=== PATIENT | female | born 1975 | race Caucasian/White ===

== ENCOUNTER 2019-09-11 16:44 | Emergency (ER) | payer SELFPAY ==
[2019-09-11 16:50] VITALS: BP 139/88; PULSE 111; RESP 16; TEMP 36.7; O2SAT 99; BMI 21.8
--- NOTE | 2019-09-11 16:58 | W.ED.SKABFB ---
HPI - Skin/Abscess/Foreign Bdy General: Chief complaint: Skin/Abscess/Foreign Body Stated complaint: abscess Time Seen by Provider: 09/11/19 16:57 Source: patient Mode of arrival: ambulatory Limitations: no limitations History of Present Illness: HPI narrative: Patient is a 44-year-old female here with a complaint of an abscess to her right buttock over the past 4 to 5 days. Patient reports a history of frequent abscesses. She reports a history of MRSA. Tetanus up to date: yes Location: buttocks Relieving factors: none Exacerbating factors: other (sitting on buttocks ) Associated symptoms: Deny chills, fever(s), nausea or vomiting Review of Systems Const: Denies: fever, chills or body aches GI: Denies: nausea or vomiting Skin/Breast: Reports: other (R buttock abscess ) [facility] ED PFSH: Social History Smoking and tobacco status: current every day smoker Physical Exam Const: COMMON NORMALS: no apparent distress, average body habitus, oriented x3, no limitations and alert GENERAL APPEARANCE: appears older than stated age Resp: COMMON NORMALS: normal respiratory effort Cardio: COMMON NORMALS: regular rate and regular rhythm RATE: regular rate RHYTHM: regular rhythm Neuro: COMMON NORMALS: oriented x3 SENSORIUM/ORIENTATION: Yes alert Skin: OTHER: pt has an area of about 2 inches of erythema to her R buttock; center is indurated and mildly fluctuant and drains purulent material with gentle expression Procedures Abscess I/D Site: other (buttock) Side (if applicable): right Local Anesthetic: lidocaine 1% and with epi Amount of anesthesia used (mL): 2.0 Technique: incised with #11 blade Amount of fluid expressed (mL): 1.0 Irrigation: Yes Packing used?: plain Complications: other (none; cultures obtained ) Course Vital Signs: Vital signs: Vital Signs Temperature 98.4 F 09/11/19 18:02 Pulse Rate 64 09/11/19 18:02 Respiratory Rate 16 09/11/19 18:02 Blood Pressure 137/68 09/11/19 18:02 Pulse Oximetry 96 09/11/19 18:02 Discharge Plan Discharge Patient Disposition: Home, Self-Care Clinical Impression: Abscess of buttock, right Condition: Stable Prescriptions: New Bactrim DS 800-160 mg tablet 1 tab PO BID 7 Days Qty: 14 RF: 0 Discharge Orders: Discharge Order (Routine); Ordered 09/11/19 Ordered By: Ana Lilia Saleem Patient Instructions: Abscess Incision and Drainage (ED), Abscess (ED) Activity Restrictions/Additional Instructions: You may remove packing in 3 days. Warm compresses will help facilitate drainage. Begin your antibiotics immediately. Return to ED in 48 hours for worsening pain, redness, swelling, drainage. Discharge Date/Time: 09/11/19 18:04 Coding Level of Care Code ED Director Of Agronomy for Thor Johnson
[2019-09-11] MEDS: sulfamethoxazole-trimeth DS 160-800 mg Tablet 1 TAB PO (18:00)
[2019-09-11 18:02] VITALS: BP 137/68; PULSE 64; RESP 16; TEMP 36.9; O2SAT 96
== END 2019-09-11 18:04 | disposition home or self-care (01) ==
PROVIDERS: Emergency Provider Physician Assistant
DX: L02.31 Cutaneous abscess of buttock (principal); F17.200 Nicotine dependence, unspecified, uncomplicated
CPT/HCPCS: 10060; 12345; 87070; 87077; 87186; 87205; 99282; 99283; J2001

== ENCOUNTER 2020-03-09 19:12 | Emergency (ER) | payer SELFPAY ==
[2020-03-09 19:37] VITALS: BP 117/70; PULSE 93; RESP 16; TEMP 36.8; O2SAT 98; BMI 21.8
--- NOTE | 2020-03-09 19:52 | ED_ITS ---
HPI - General Adult General: Chief complaint: General Medical Stated complaint: possible uti/ovarie pain Time Seen by Provider: 03/09/20 19:46 History of Present Illness: HPI narrative: 45-year-old female patient presents to the emergency department with complaints of possible urinary tract infection. She reports last night, experienced an episode of urinary pain and burning. She reports lower abdominal pain x3 months. Has not worsened, comes and goes, w orse with menstrual cycle which is every 2 weeks. She does not have a primary care provider. She denies vaginal bleeding or discharge. She is requesting to be tested for STD. Reports last menstrual period approximately 10 days ago. She denies abdominal/pelvic pain upon exam. Location: pelvis Radiation: other (Suprapubic) Associated symptoms: Reports no associated symptoms; Deny chest pain, diaphoresis, dyspnea, headache(s), nausea, rash, palpitations or vomiting Treatments prior to arrival: none Review of Systems General: Reports: 10 or more systems reviewed and unremarkable except in HPI and below Const: Denies: fever(s), chills or diaphoresis Eyes: Denies: blurry vision or eye redness ENMT: Denies: throat pain, dental pain or disequilibrium Card: Denies: chest pain, palpitations or irregular heart rhythm Resp: Denies: dyspnea, productive cough, non-productive cough or wheezing GI: Denies: abdominal pain, nausea or vomiting : Reports: dysuria (Burning) and change in menstrual flow (More frequent past 3 months); Denies: difficulty voiding, hematuria, genital lesions, vaginal dryness, vaginal odor, vaginal bleeding, vaginal discharge or metrorrhagia Musc: Denies: back pain Skin/Breast: Denies: rash or pruritus Neuro: Denies: headache(s), weakness in extremities or behavioral changes Gt/Lymph: Denies: easy bruising PFS ED PFSH: Social History (Updated 03/09/20 @ 18:45 by Kae Lopez LPN) Smoking and tobacco status: current every day smoker Alcohol intake: current Female Reproductive History: Date of last menstrual period: 03/01/20 Physical Exam Const: COMMON NORMALS: no acute distress, patient oriented x3, healthy appearing and alert GENERAL APPEARANCE: cooperative, comfortable and well hydrated ORIENTATION/CONSCIOUSNESS: Yes awake, Yes oriented to person and Yes oriented to place HENMT: COMMON NORMALS: normocephalic, Normal external nose present and moist oral mucous membranes HEAD & SCALP: normocephalic NOSE: Normal external nose present Eye: COMMON NORMALS: Equal, round and reactive pupils present and EOMs intact bilaterally GENERAL EYE: appearance normal, both eyes and all related structures PUPIL: Yes Equal, round and reactive pupils present Neck/C-Spine: COMMON NORMALS: full ROM and no lymphadenopathy GENERAL: Yes normal visual inspection and Yes trachea midline CERVICAL SPINE: Yes cervical ROM normal Lymph: LYMPHATIC: no lymphadenopathy noted Chest: COMMONS NORMALS: normal inspection of the chest Resp: COMMON NORMALS: normal respiratory effort and clear to auscultation bilaterally AUSCULTATION: clear to auscultation bilaterally Cardio: COMMON NORMALS: regular rhythm, S1 normal heart sound present, S2 normal heart sound present and Peripheral pulses 2+ throughout RHYTHM: regular rhythm HEART SOUNDS: S1 normal heart sound present and S2 normal heart sound present PERIPHERAL PULSES: Peripheral pulses 2+ throughout GI: COMMON NORMALS: Normal to inspection, nondistended, normoactive bowel sounds present, Soft to palpation and non-tender INSPECTION: Yes normal to inspection AUSCULTATION: Yes normoactive bowel sounds PALPATION: Yes Soft to palpation : COMMON NORMALS: Yes no CVA tenderness BLADDER/KIDNEY EXAM: Yes no CVA tenderness Back/Pelvis: COMMON NORMALS: no CVA tenderness and thoracic and lumbar spine normal to inspection Extremity: COMMON NORMALS: normal to inspection and capillary refill normal Neuro: COMMON NORMALS: patient oriented x3 and no focal motor deficits SENSORIUM/ORIENTATION: Yes alert, Yes oriented to person and Yes oriented to place Psych: COMMON NORMALS: mental status grossly normal, Normal thought process present and cooperative ACTIVITY/MOTOR BEHAVIOR: Yes appropriate eye contact THOUGHT PROCESS: Normal thought process present Skin: COMMON NORMALS: no rashes or lesions noted and turgor normal GENERAL SKIN EXAM: no rashes or lesions noted and turgor normal Course ED course: 45-year-old female presents to the emergency department with 3- month history of lower pelvic pain, pain has not changed, she denies pain in the emergency room during her stay. She reports 1 day history of pain with urination, denies pain with urination upon exam. She is requesting pelvic ultrasound, discussion with patient that she will need to follow-up with primary care who then can order pelvic ultrasound she verbalized understanding. She is aware I have consulted social insurance specialist to assist with the process. Vital Signs: Vital signs: Vital Signs Temperature 98.2 F 03/09/20 19:37 Pulse Rate 71 03/09/20 21:03 Respiratory Rate 18 03/09/20 21:03 Blood Pressure 116/74 03/09/20 21:03 Pulse Oximetry 99 03/09/20 21:03 MDM - General Adult Lab Data: Labs: Lab Results 03/09/20 03/09/20 03/09/20 Range/Units 19:58 19:58 19:58 Urine Color Yellow (Yellow) Urine Appearance Clear (CLEAR) Urine pH 5 (5-7) Ur Specific Gravit y 1.030 (1.005-1.030) Urine Protein Neg (Negative) Urine Glucose (UA) Norm (Normal) Urine Ketones Negative (Negative) Urine Blood Neg (Negative) Urine Nitrate Negative (Negative) Urine Bilirubin Neg (Negative) Urine Urobilinogen Norm (Negative) mg/dL Ur Leukocyte Batsheva ase Negative (Negative) Urine HCG, Qual Negative (Negative) C.trachomatis RNA (TMA) Cancelled Chlamydia/GC Comme nt Cancelled N.gonorrhoeae RNA (TMA) Cancelled Discharge Plan Discharge Patient Disposition: Home Clinical Impression: Pelvic pain in female, Dysuria Condition: Stable Prescriptions: No Action No Known Home Medications RF: 0 Discharge Orders: Discharge Order (Routine); Ordered 03/09/20 Ordered By: Reshma Hoff Discharge Diet: Usual diet Discharge Activity: Resume usual activity Patient Instructions: Dysuria (ED), Pelvic Pain Activity Restrictions/Additional Instructions: information services consultant has been contacted to help assist with appointment for primary care provider he can then order pelvic ultrasound. test negative today, urine today did not reveal active infection. STD testing will be batch tomorrow, you will be contacted if positive results. Return to the emergency department if you develop heavy vaginal bleeding, nausea vomiting with lower pelvic pain or worsening symptoms. Discharge Date/Time: 03/09/20 21:05 Coding Level of Care Code ED Piercing Specialist for Thor Johnson Exam Comprehensive
[2020-03-09 20:17] LABS: Add Urine Microscopic? NO
[2020-03-09 20:21] LABS: Bilirubin Urine Neg (Negative); Blood Urine Neg (Negative); Glucose Urine UA Norm (Normal); Ketones Urine Negative (Negative); Leukocyte Esterase Urine Negative (Negative); Nitrate Urine Negative (Negative); Protein Urine Neg (Negative); Urine Appearance Clear (CLEAR); Urine Color Yellow (Yellow); Urobilinogen Urine Norm (Negative); pH Urine 5 (5-7)
[2020-03-09 21:03] VITALS: BP 116/74; PULSE 71; RESP 18; O2SAT 99
--- NOTE | 2020-03-10 10:09 | DCPLANNER ---
bindery manager had message to speak with patient about getting established with a primary care physician. bindery manager called phone number [phone], that is not the phone number to the patient. bindery manager is unable to speak with patient at this time, and unable to leave a voicemail for patient.
== END 2020-03-09 21:05 | disposition home or self-care (01) ==
PROVIDERS: Emergency Medicine; Emergency Provider Nurse Practitioner Family
DX: R10.2 Pelvic and perineal pain (principal); R30.0 Dysuria; F17.210 Nicotine dependence, cigarettes, uncomplicated
CPT/HCPCS: 12345; 81003; 81025; 87491; 87591; 99282

== ENCOUNTER 2020-08-26 00:28 | Emergency (ER) | payer SELFPAY ==
[2020-08-26 00:31] VITALS: BP 121/88; PULSE 94; RESP 18; TEMP 36.5; O2SAT 100
--- NOTE | 2020-08-26 00:39 | ED_ITS ---
HPI - Headache General: Chief Complaint: Headache Stated Complaint: HEAD AND NECK PRESSURE Time Seen by Provider: 08/26/20 00:35 Source: patient and EMS Mode of arrival: EMS Limitations: no limitations History of Present Illness: HPI Narrative: 45-year-old female who states she has had some headache and right-sided ear pain and fullness over the last month with it worsening tonight. She states seems to be stress related. States she does have a history of migraines and this feels similar to her migraine as well. States that she has pain behind her right ear. Denies any vomiting or diarrhea. Denies any improving factors. States her pain is currently 5 out of 10. MD elicited complaint: headache Associated symptoms: Deny chest pain, fever(s), nausea, rash or vomiting Review of Systems Const: Denies: fever(s), chills, body aches or change in appetite Eyes: Denies: blurry vision or eye discomfort ENMT: Reports: ear or mastoid pain Card: Denies: chest pain Resp: Denies: dyspnea GI: Denies: abdominal pain, nausea, vomiting or diarrhea : Denies: dysuria Musc: Denies: neck pain or back pain Skin/Breast: Denies: rash Neuro: Reports: headache(s) Psych: Denies: depression Gt/Lymph: Denies: easy bruising All/Imm: Denies: urticaria [facility] ED PFSH: Social History (Updated 03/09/20 @ 18:45 by Kae Lopez LPN) Smoking and tobacco status: current every day smoker Alcohol intake: current Female Reproductive History: Date of last menstrual period: 03/01/20 Physical Exam Const: COMMON NORMALS: no acute distress, patient oriented x3 and healthy appearing HENMT: COMMON NORMALS: normocephalic and atraumatic HEAD & SCALP: normocephalic and atraumatic OTHER: Erythema to right TM with some fluid behind eardrum as well. Eye: COMMON NORMALS: Equal, round and reactive pupils present and EOMs intact bilaterally PUPIL: Yes Equal, round and reactive pupils present Neck/C-Spine: COMMON NORMALS: full ROM and supple Chest: COMMONS NORMALS: normal inspection of the chest and normal palpation of entire chest wall Resp: COMMON NORMALS: normal respiratory effort, No retractions, No use of accessory muscles and clear to auscultation bilaterally AUSCULTATION: clear to auscultation bilaterally Cardio: COMMON NORMALS: regular rate, regular rhythm and No murmurs present (Cardio) RATE: regular rate RHYTHM: regular rhythm GI: COMMON NORMALS: Normal to inspection, nondistended, normoactive bowel sounds present, Soft to palpation, non-tender and no masses PALPATION: Yes Soft to palpation Extremity: COMMON NORMALS: normal to inspection and full ROM Neuro: COMMON NORMALS: patient oriented x3, moves all extremities and no focal motor deficits Psych: COMMON NORMALS: mental status grossly normal, Normal thought process present and cooperative THOUGHT PROCESS: Normal thought process present Skin: COMMON NORMALS: no rashes or lesions noted and no wounds GENERAL SKIN EXAM: no rashes or lesions noted Course Vital Signs: Vital signs: Vital Signs Temperature 97.7 F 08/26/20 00:31 Pulse Rate 94 08/26/20 00:31 Respiratory Rate 18 08/26/20 00:31 Blood Pressure 121/88 08/26/20 00:31 Pulse Oximetry 100 08/26/20 00:31 MDM - Headache MDM Narrative: Medical decision making narrative: 45-year-old presents with headache likely from her otitis media. CT showed no signs of mastoiditis. She has no signs of subarachnoid hemorrhage or meningitis. She is stable for discharge and will place her on Keflex. She is to follow-up with her PCP and return if worsening. Imaging Data^: CT Head: Attestation: I personally reviewed and interpreted this imaging study as follo ws: Radiologist's impression: [address] [address] [address] Scan Report Signed Patient: Danielle Weber Unit #: [id number] : 1975 Age/Sex: 45 / F ADM Date: 08/26/20 Loc: ER Room/Bed: Attending Dr: Ordering Provider/Ordering MD: aNti Tavera MD Date of Service: 08/26/20 Procedure(s): CT head wo con* [id number] Accession Number(s): [id number] Report Number: [id number] PROCEDURE INFORMATION: Exam: CT Head Without Contrast Exam date and time: 08/26/2020 12:53 AM Age: 45 years old Clinical indication: Pain; Patient HX: Severe headache; Additional info: RIVERA TECHNIQUE: Imaging protocol: Computed tomography of the head without contrast. Radiation optimization: All CT scans at this facility use at least one of these dose optimization techniques: automated exposure control; mA and/or kV adjustment per patient size (includes targeted exams where dose is matched to clinical indication); or iterative reconstruction. COMPARISON: No relevant prior studies available. RADIATION DOSE METRICS: Total DLP (mGy-cm): 582.99 FINDINGS: Brain: No hemorrhage. No significant white matter disease. No edema. Cerebral ventricles: No hydrocephalus Bones/joints: No acute fracture. Paranasal sinuses: Visualized sinuses are unremarkable. No fluid levels. Mastoid air cells: No significant mastoid effusion. Soft tissues: Unremarkable. CT/CT head wo con* [id number] IMPRESSION: No acute intracranial abnormality. Discharge Plan Discharge Patient Disposition: Home Clinical Impression: Headache Qualifiers: Headache type: unspecified Headache chronicity pattern: acute headache Intractability: not intractable Qualified Code(s): R51.9 - Headache, unspecified Otitis media Qualifiers: Otitis media type: unspecified Laterality: right Qualified Code(s): H66.91 - Otitis media, unspecified, right ear Condition: Stable Prescriptions: New Keflex 500 mg capsule 500 mg PO Q6H 7 Days Qty: 28 RF: 0 Discharge Orders: Discharge ED (Routine); Ordered 08/26/20 Ordered By: Nati Tavera Discharge Diet: Advance as tolerated Discharge Activity: Resume usual activity Patient Instructions: Acute Headache (ED) Coding Level of Care Code ED Synthetic Cloth Binding Cutter for Felag Fwd Exam Comprehensive
[2020-08-26 01:07] VITALS: BP 151/87; PULSE 93; RESP 18; O2SAT 98
[2020-08-26 02:07] VITALS: BP 113/77; PULSE 82; O2SAT 97
[2020-08-26] MEDS: diphenhydrAMINE 50 mg/mL SDV 1mL IM (02:44)
[2020-08-26] MEDS: metoclopramide 5 mg/mL SDV 2 mL 10 MG IM (02:44)
[2020-08-26 02:50] VITALS: PULSE 98; O2SAT 98
== END 2020-08-26 02:50 | disposition home or self-care (01) ==
PROVIDERS: Emergency Provider Emergency Medicine
DX: R51.9 Headache, unspecified (principal); H66.91 Otitis media, unspecified, right ear; F17.210 Nicotine dependence, cigarettes, uncomplicated
CPT/HCPCS: 70450; 96372; 99283; J1200; J2765

== ENCOUNTER 2020-08-30 00:02 | Emergency (ER) | payer SELFPAY ==
--- NOTE | 2020-08-30 00:03 | ED_ITS ---
HPI - Ear Problem General: Chief complaint: Headache Stated complaint: HEADACHE/ EARACHE Time Seen by Provider: 08/30/20 00:02 Source: patient Mode of arrival: ambulatory Limitations: no limitations History of Present Illness: HPI Narrative: 45-year-old female comes in today for complaints of ear pain and headache. Patient presents under the influence of a substance. Patient is restless and reports that there is something crawling in her brain. Patient does admit to the use of alcohol, tobacco cigarettes, and methamphetamines. Patient denies any suicidal or homicidal th oughts. Associated symptoms: Reports ear or mastoid pain Review of Systems General: Reports: 10 or more systems reviewed and unremarkable except in HPI and below ENMT: Reports: ear or mastoid pain PFS ED PFSH: Social History (Updated 03/09/20 @ 18:45 by Kae Lopez LPN) Smoking and tobacco status: current every day smoker Alcohol intake: current Female Reproductive History: Date of last menstrual period: 03/01/20 Physical Exam Const: COMMON NORMALS: no acute distress and patient oriented x3 GENERAL APPEARANCE: cooperative and well kempt HENMT: COMMON NORMALS: normocephalic, TM's normal bilaterally and Normal external nose present HEAD & SCALP: normal to inspection and normocephalic NOSE: Normal external nose present TYMPANIC MEMBRANE: TM's normal bilaterally MOUTH: Normal oral and palatal mucosa present THROAT: posterior oropharynx normal Eye: GENERAL EYE: appearance normal, both eyes and all related structures Neck/C-Spine: COMMON NORMALS: full ROM Lymph: LYMPHATIC: no lymphadenopathy noted Chest: COMMONS NORMALS: normal inspection of the chest Resp: COMMON NORMALS: normal respiratory effort EFFORT & INSPECTION: Yes able to speak in complete sentences Cardio: COMMON NORMALS: regular rate and regular rhythm RATE: regular rate RHYTHM: regular rhythm GI: COMMON NORMALS: non-tender : COMMON NORMALS: Yes no CVA tenderness BLADDER/KIDNEY EXAM: Yes no CVA tenderness Back/Pelvis: COMMON NORMALS: no CVA tenderness and thoracic and lumbar spine normal to inspection Extremity: COMMON NORMALS: normal to inspection Neuro: COMMON NORMALS: patient oriented x3 and moves all extremities Psych: COMMON NORMALS: mental status grossly normal, cooperative and speech normal APPEARANCE: Yes well kempt ATTITUDE: Yes bizarre ACTIVITY/MOTOR BEHAVIOR: Yes psychomotor agitation SPEECH: Yes normal speech MOOD & AFFECT: Yes anxious THOUGHT PROCESS: Illogical thought process present THOUGHT CONTENT: No Suicidality present and No Homicidality present INSIGHT: questionable JUDGEMENT: questionable Skin: COMMON NORMALS: no rashes or lesions noted GENERAL SKIN EXAM: no rashes or lesions noted Course Vital Signs: Vital signs: Vital Signs Temperature 97.3 F L 08/30/20 00:04 Pulse Rate 88 08/30/20 00:11 Respiratory Rate 24 H 08/30/20 00:11 Blood Pressure 105/82 08/30/20 00:11 Pulse Oximetry 99 08/30/20 00:11 MDM - Ear MDM Narrative: Medical decision making narrative: 45-year-old female who is brought in by EMS for concerns of ear pain and headache. Patient appears well. Patient was agitated and anxious. Patient did admit to the use of methamphetamines. Examination noted bilateral tympanic membranes were clear without any signs of redness or significant fluid behind either eardrum. Posterior pharynx is pink. Respirations were even. Lungs were clear to auscultation. Vital signs were normal. Differential diagnosis was acute drug intoxication, delusions of parasitosis, and anxiety, otitis media, migraine headache. Review of the prior visit noted patient had a CT scan of the head done at that time which was normal. Patient was ordered a dose of lorazepam to help with her anxiety and delusions. Patient took half a tablet of the medicine and refused to take any further medication and left the emergency department before I could reassess her. Discharge Plan Discharge Patient Disposition: Left Against Medical Advice Clinical Impression: Acute substance intoxication, Delusions of parasitosis, Anxiety about health Condition: Stable Prescriptions: No Action Keflex 500 mg capsule 500 mg PO Q6H 7 Days Qty: 28 RF: 0 Discharge Diet: Usual diet Discharge Activity: Resume usual activity Activity Restrictions/Additional Instructions: Drink plenty of fluids. Healthy diet and exercise. Avoid the use of methamphetamines. Use acetaminophen or ibuprofen for pain. Follow-up with primary care as needed. Coding Level of Care Code ED Treating Plant Operator for Thor Johnson Exam Comprehensive
[2020-08-30 00:04] VITALS: BP 105/82; PULSE 92; RESP 20; TEMP 36.3; O2SAT 100; BMI 23.5
[2020-08-30 00:11] VITALS: BP 105/82; PULSE 88; RESP 24; O2SAT 99
[2020-08-30] MEDS: LORazepam 2 mg Tablet PO (00:30)
== END 2020-08-30 00:38 | disposition left against medical advice (07) ==
LOC: ER 00:29
PROVIDERS: Emergency Provider Nurse Practitioner Family
DX: F15.129 Other stimulant abuse with intoxication, unspecified (principal); F22 Delusional disorders; F41.9 Anxiety disorder, unspecified; F17.210 Nicotine dependence, cigarettes, uncomplicated
CPT/HCPCS: 99282

== ENCOUNTER → 2020-11-22 10:30 | Outpatient (BNVA) | payer SELFPAY | PROVIDERS: Visit Provider Nurse Practitioner | DX: N39.0 Urinary tract infection, site not specified (principal); R39.9 Unspecified symptoms and signs involving the genitourinary system; Z68.24 Body mass index [BMI] 24.0-24.9, adult; F17.210 Nicotine dependence, cigarettes, uncomplicated | CPT/HCPCS: 81000 ==

== ENCOUNTER 2021-07-31 20:39 | Emergency (ER) | payer SELFPAY | END 2021-07-31 23:09 | disposition left against medical advice (07) | PROVIDERS: Emergency Provider Family Medicine | DX: Z53.21 Procedure and treatment not carried out due to patient leaving prior to being seen by health care provider (principal) ==

== ENCOUNTER → 2021-08-25 14:45 | Outpatient (BNVA) | payer SELFPAY | PROVIDERS: Visit Provider Nurse Practitioner | DX: Z20.2 Contact with and (suspected) exposure to infections with a predominantly sexual mode of transmission (principal) | CPT/HCPCS: 81000; 87086; 87491; 87591 ==

== ENCOUNTER 2021-11-02 21:01 | Inpatient (IN) | payer SELFPAY ==
[2021-11-02 21:14] VITALS: BP 143/101; PULSE 114; RESP 18; TEMP 36.6; O2SAT 98; BMI 23.1
--- NOTE | 2021-11-02 21:33 | ED.C_ITS ---
HPI - Psych General: Chief Complaint: Psychiatric Symptoms Stated Complaint: SI Time Seen by Provider: 11/02/21 21:28 Source: patient Mode of arrival: ambulatory Limitations: no limitations History of Present Illness: 38-year-old female was brought in by police under 96-hour hold. Patient been using meth per family and made threats to cut her head off a machete. She is fairly adamant here she is not suicidal or homicidal she is a little agitated and seems to be under the influence. She denies any worsening improving factors is not on any meds at this time. Associated symptoms: Reports auditory hallucinations and depression Review of Systems Const: Denies: fever(s), chills, body aches or change in appetite Eyes: Denies: blurry vision or eye discomfort ENMT: Denies: throat pain or dental pain Card: Denies: chest pain Resp: Denies: dyspnea GI: Denies: abdominal pain, nausea, vomiting or diarrhea : Denies: dysuria Musc: Denies: neck pain or back pain Skin/Breast: Denies: rash Neuro: Denies: headache(s) Psych: Reports: depression and auditory hallucinations Gt/Lymph: Denies: easy bruising All/Imm: Denies: urticaria PFSH ED PFSH: Medical History (Updated 11/02/21 @ 22:40 by Nati Tavera MD) No pertinent past medical history Social History Smoking and tobacco status: current every day smoker Alcohol intake: current Female Reproductive History: Date of last menstrual period: 03/21/20 Physical Exam Const: COMMON NORMALS: no acute distress, patient oriented x3 and healthy appearing HENMT: COMMON NORMALS: normocephalic and atraumatic HEAD & SCALP: normocephalic and atraumatic Eye: COMMON NORMALS: Equal, round and reactive pupils present and EOMs intact bilaterally PUPIL: Yes Equal, round and reactive pupils present Neck/C-Spine: COMMON NORMALS: full ROM and supple Chest: COMMONS NORMALS: normal inspection of the chest and normal palpation of entire chest wall Resp: COMMON NORMALS: normal respiratory effort, No retractions, No use of accessory muscles and clear to auscultation bilaterally AUSCULTATION: clear to auscultation bilaterally Cardio: COMMON NORMALS: regular rate, regular rhythm and No murmurs present (Cardio) RATE: regular rate RHYTHM: regular rhythm GI: COMMON NORMALS: Normal to inspection, nondistended, normoactive bowel sounds present, Soft to palpation, non-tender and no masses PALPATION: Yes Soft to palpation Extremity: COMMON NORMALS: normal to inspection and full ROM Neuro: COMMON NORMALS: patient oriented x3, moves all extremities and no focal motor deficits Psych: COMMON NORMALS: mental status grossly normal, Normal thought process present and cooperative THOUGHT PROCESS: Normal thought process present Skin: COMMON NORMALS: no rashes or lesions noted and no wounds GENERAL SKIN EXAM: no rashes or lesions noted Course Vital Signs: Vital signs: Vital Signs Temperature 98 F 11/02/21 21:14 Pulse Rate 100 11/02/21 21:41 Respiratory Rate 16 11/02/21 21:41 Blood Pressure 124/86 11/02/21 21:41 Pulse Oximetry 99 11/02/21 21:41 MDM - Psych Medical Decision Making Patient presents here with some hallucinations meth abuse and SI patient is under 96-hour hold I spoke to psychiatrist will admit here. Lab Data : 11/02/21 21:36 11/02/21 21:36 Laboratory Results WBC 10.0 10^3/uL (4.0-10.0) 11/02/21 21:36 RBC 4.64 10^6/uL (4.1-5.3) 11/02/21 21:36 Hgb 13.8 g/dL (11.5-15.3) 11/02/21 21:36 Hct 42.1 % (37.0-47.0) 11/02/21 21:36 MCV 90.7 fl (81-99) 11/02/21 21:36 MCH 29.7 pg (28.0-34.0) 11/02/21 21:36 MCHC 32.8 g/dL (30.0-36.0) 11/02/21 21:36 RDW 13.4 % (12.1-15.1) 11/02/21 21:36 Plt Count 448 10^3/cmm (130-400) H 11/02/21 21:36 MPV 9.1 fL (7.4-10.4) 11/02/21 21:36 Neut % (Auto) 45.2 % 11/02/21 21:36 Lymph % (Auto) 41.8 % 11/02/21 21:36 Glascock % (Auto) 11.6 % 11/02/21 21:36 Eos % (Auto) 0.4 % 11/02/21 21:36 Baso % (Auto) 0.8 % 11/02/21 21:36 Neut # (Auto) 4.53 10^3/uL (1.8-7.7) 11/02/21 21:36 Lymph # (Auto) 4.2 10^3/uL (0.8-4.8) 11/02/21 21:36 Glascock # (Auto) 1.2 10^3/uL (0.2-0.9) H 11/02/21 21:36 Eos # (Auto) 0.0 10^3/uL (0.0-0.8) 11/02/21 21:36 Baso # (Auto) 0.1 10^3/uL (0.0-0.1) 11/02/21 21:36 Nucleated RBC % (auto) 0 % 11/02/21 21:36 Nucleated RBCs # 0.0 /100WBC 11/02/21 21:36 Sodium 135 mmol/L (136-145) L 11/02/21 21:36 Potassium 4.9 mmol/L (3.5-5.1) 11/02/21 21:36 Chloride 101 mmol/L (98-107) 11/02/21 21:36 Carbon Dioxide 27 mmol/L (22-29) 11/02/21 21:36 Anion Gap 11.9 (5-19) 11/02/21 21:36 BUN 18 mg/dL (6-20) 11/02/21 21:36 Creatinine 0.6 mg/dL (0.5-0.9) 11/02/21 21:36 GFR Calculation 106.7 mL/min (90-130) 11/02/21 21:36 Glucose 105 mg/dL (65-115) 11/02/21 21:36 Calculated Osmolality 282 mOsm/kg (285-295) L 11/02/21 21:36 Calcium 9.9 mg/dL (8.5-10.5) 11/02/21 21:36 Total Bilirubin 0.2 mg/dL (0.15-1.2) 11/02/21 21:36 AST 14 U/L (0-32) 11/02/21 21:36 ALT 13 U/L (0-33) 11/02/21 21:36 Alkaline Phosphatase 72 IU/L (35-105) 11/02/21 21:36 Total Protein 7.1 g/dL (6.6-8.7) 11/02/21 21:36 Albumin 4.6 g/dL (3.5-5.2) 11/02/21 21:36 Globulin 2.5 g/dL (1.3-4.6) 11/02/21 21:36 Salicylates < 0.3 mg/dL (3-10) L 11/02/21 21:36 Acetaminophen < 5.0 ug/mL (10-30) L 11/02/21 21:36 Ethyl Alcohol < 10 mg/dL (0-10) 11/02/21 21:36 Discharge Plan Discharge Patient Disposition: Admitted As Inpatient Clinical Impression: Suicidal ideation, Drug-induced psychotic disorder Condition: Stable Coding Level of Care Code ED Leather Goods Maker for Thor Fwd Exam Comprehensive
[2021-11-02 21:41] VITALS: BP 124/86; PULSE 100; RESP 16; O2SAT 99
[2021-11-02 21:41] LABS: Basophils # 0.1 10^3/uL (0.0-0.1); Basophils % 0.8 %; Eosinophils % 0.4 %; Hematocrit 42.1 % (37.0-47.0); Hemoglobin 13.8 g/dL (11.5-15.3); Lymphocytes # 4.2 10^3/uL (0.8-4.8); Lymphocytes % 41.8 %; Mean Corpuscular HGB Conc 32.8 g/dL (30.0-36.0); Mean Corpuscular Hemoglobin 29.7 pg (28.0-34.0); Mean Corpuscular Volume 90.7 fl (81-99); Mean Platelet Volume 9.1 fL (7.4-10.4); Monocytes # 1.2 10^3/uL (0.2-0.9); Monocytes % 11.6 %; Neutrophils # 4.53 10^3/uL (1.8-7.7); Neutrophils % 45.2 %; Nucleated Red Blood Cells % 0 %; Platelet Count 448 10^3/cmm (130-400); Red Blood Count 4.64 10^6/uL (4.1-5.3); Red Cell Distribution Width 13.4 % (12.1-15.1)
[2021-11-02 22:08] LABS: Alanine Aminotransferase 13 U/L (0-33); Albumin Level 4.6 g/dL (3.5-5.2); Alkaline Phosphatase 72 IU/L (35-105); Anion Gap 11.9 (5-19); Aspartate Amino Transferase 14 U/L (0-32); Blood Urea Nitrogen 18 mg/dL (6-20); Calcium 9.9 mg/dL (8.5-10.5); Carbon Dioxide 27 mmol/L (22-29); Chloride 101 mmol/L (98-107); Globulin 2.5 g/dL (1.3-4.6); Glomerular Filtration Rate 106.7 mL/min (90-130); Glucose 105 mg/dL (65-115); Osmolality Calculated 282 mOsm/kg (285-295); Potassium 4.9 mmol/L (3.5-5.1); Sodium 135 mmol/L (136-145); Total Bilirubin 0.2 mg/dL (0.15-1.2); Total Protein 7.1 g/dL (6.6-8.7)
[2021-11-02 22:14] LABS: Acetaminophen < 5.0 ug/mL (10-30); Alcohol Level < 10 mg/dL (0-10); Salicylate < 0.3 mg/dL (3-10)
[2021-11-02 22:18] LABS: Slide Review Slide Review Perform
[2021-11-02] MEDS: LORazepam 2 mg Tablet PO (23:20)
[2021-11-03 00:05] VITALS: BP 124/77; PULSE 89; RESP 16; TEMP 36.9; O2SAT 96
[2021-11-03 00:06] LABS: Amphetamines Screen Urine Positive (Negative); Barbiturates Screen Urine Negative (Negative); Benzodiazepines Screen Urine Negative (Negative); Cocaine Screen Urine Negative (Negative); Opiate Screen Urine Negative (Negative); PCP Screen Urine Negative (Negative); THC Screen Urine Negative (Negative)
[2021-11-03 00:40] VITALS: BP 128/87; PULSE 90; RESP 16; TEMP 36.7; O2SAT 95
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
[2021-11-03 06:00] VITALS: BP 114/75; PULSE 78; RESP 17; TEMP 36.6; O2SAT 98
[2021-11-03] MEDS: nicotine 21 mg Patch 1 PATCH TRANSDERMA (08:17)
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
--- NOTE | 2021-11-03 10:49 | PC.NURSE ---
Father and mother called ot given information to this RN. Father states that she was flown by air evac to [place] for liver failure. Father states that patient says everyone is out to get her. Hears voices and see's things. . She drinks whiskey every morning for breakfast, has a horrible temper, her grandkids are afraid of her. She walks around with a machetes. Parents state they would like her to take antibuse so she will stop drinking.
[2021-11-03 14:00] VITALS: BP 102/64; PULSE 74; RESP 16; TEMP 36.3; O2SAT 97
[2021-11-03 20:27] VITALS: BP 100/69; PULSE 100; RESP 16; O2SAT 97
[2021-11-04 05:59] VITALS: BP 107/74; PULSE 88; RESP 18; O2SAT 97
--- NOTE | 2021-11-04 09:55 | W.PM.NPUPNS ---
Subjective NPU Subjective: She is doing significantly better. She is embarrassed to talk about her delusions of metal flying and seeing the objects. She is very embarrassed about calling the police to check on her daughter. Her older daughter in [place] is going to have her come there and live with her. They have a big house. They are active in [employer]. She would also like to start going back to [employer]. 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 Her daughter said that she could be a big help to her in that business. She could help deliver the puppies. She and her daughter are planning on her going to an outpatient [facility] program. She would go to an inpatient place if that is what we told her she must do. She said that she previously had a lot of anxiety about getting a head CT scan. At 1 point she was afraid that she might have some metal in her body and did not want to get MRI. She finally agreed to get the CT scan but told the doctor not to tell her if there was something bad. She has not got the results. The CT scan was done here and the results were normal. She was given that information. Mental Status Exam MSE Comments: This is a 46-year-old appropriate weight female who appears a little older than her stated age and is in no acute distress. Her grooming is fair she is dressed in hospital scrubs. She was pleasant and cooperative with the interview. psychomotor activity is normal. Speech is at a regular rate and rhythm, normal volume, good articulation, not pressured. Alert, oriented X3 Attention and concentration possibly diminished. Memory is intact Mood is good. Affect is euthymic. Thought process is logical and goal-directed. Thought content: Denies auditory and visual hallucinations. No delusions or paranoia are noted. No current suicidal ideation, and no homicidal ideation. Fund of knowledge is possibly diminished. Insight and judgment appear to be poor. Impulse control is poor. Cognition: Patient Appearance: Disheveled/Poor Hygiene Level of Consciousness: Awake, Alert, Appropriate and Follows Commands Patient Cognition Impaired: No Ability to Follow Directions: Fair Patient Orientation (long list): Person, Place, Time, Name, Age, Birthday, Day of Month, Day of Week, Month, Time of Day and Year Comprehension Ability: No Impairment Hallucination Type: None Delusion Description: Not Present Thought Process: Appropriate Affect: Affect Description: Calm Depressive Symptoms: Unhappiness Behavior: Patient Behavior: Cooperative Speech Pattern: Clear Vitals/I&O/Wt Last Vital Signs Temp 97.3 F L 11/03/21 14:00 Pulse 88 11/04/21 05:59 Resp 18 11/04/21 05:59 BP 107/74 11/04/21 05:59 Pulse Ox 97 11/04/21 05:59 Weight last 48 hrs Weight 61.235 kg Data NPU : 11/02/21 21:36 11/02/21 21:36 A&P Assessment and plan (1) Drug-induced psychotic disorder: Status: Acute (2) Methamphetamine abuse: Status: Acute Plan Plan: This is a 46-year-old female with chronic methamphetamine and alcohol abuse and induced psychosis. 1. we will observe her off of medications other than the standard as needed medications. 2. Continue every 15 minute checks for safety. 3. Encourage individual, group and milieu therapies. 4. Encourage sober living treatment after discharge at the highest level of care to which she is willing to commit. 5. We will monitor for safety for herself in the community prior to discharge. Involuntary Hold Information 96 Hour Hold: 96 Hour Involuntary Admission: Yes Attestations NPU Medical Necessity Statement*: Inpatient hospitalization is medically necessary and the clinically appropriate intervention at this time. We will initiate medications and make changes as indicated. Coding Level of Care Code Acute Mixing Tank Operator for Thor Johnson Diagnoses Drug-induced psychotic disorder F19.959 Methamphetamine abuse F15.10
[2021-11-04] MEDS: hyDROXYzine 25 mg Capsule 50 MG PO (09:56)
--- NOTE | 2021-11-04 09:57 | PC.NURSE ---
PRN VISTARIL 50 MG GIVEN PO PER PT C/O STATED ANXIETY. WILL CONT TO MONITOR
[2021-11-04 14:00] VITALS: BP 103/69; PULSE 67; RESP 16; TEMP 36.7; O2SAT 97
[2021-11-04 20:21] VITALS: BP 111/76; PULSE 90; RESP 18; TEMP 37.1; O2SAT 97
[2021-11-05 06:00] VITALS: BP 121/84; PULSE 98; RESP 18; TEMP 36.2; O2SAT 97
--- NOTE | 2021-11-05 08:25 | W.PM.NPUPNS ---
Subjective NPU Subjective: She really wants to go home. She says that they have mother day's events scheduled that she does not want to miss. She said that she would never kill herself. She was reminded of some of the strange things that she said when she was under the influence of methamphetamine. She was given applications to the treatment programs but has not filled them out because she has not made up her mind. Yesterday she told me she was going to go to an outpatient program. She says that she does not want to start that immediately. She said what if I want to spend a week with my boyfriend . Her boyfriend uses methamphetamine but not as bad as she does. She said that he is no fun anyway and she should stay away from him. But then she said what if I want to spend 1 night with him. I told her that she needed to fill out some of those applications for treatment programs. We need to social workers to help her choose the best one for her tomorrow. Mental Status Exam MSE Comments: This is a 46-year-old appropriate weight female who appears a little older than her stated age and is in no acute distress. Her grooming is fair she is dressed in hospital scrubs. She was pleasant and cooperative with the interview. psychomotor activity is normal. Speech is at a regular rate and rhythm, normal volume, good articulation, not pressured. Alert, oriented X3 Attention and concentration possibly diminished. Memory is intact Mood is sad because she is missing Mother's Day events. Affect is dysphoric because she is here Thought process is logical and goal-directed. Thought content: Denies auditory and visual hallucinations. No delusions or paranoia are noted. No current suicidal ideation, and no homicidal ideation. Fund of knowledge is possibly diminished. Insight and judgment appear to be poor. Impulse control is poor. Cognition: Patient Appearance: Disheveled/Poor Hygiene Level of Consciousness: Awake, Alert, Appropriate and Follows Commands Patient Cognition Impaired: No Ability to Follow Directions: Fair Patient Orientation (long list): Person, Place, Name, Age, Day of Month, Month and Year Comprehension Ability: No Impairment Hallucination Type: None Delusion Description: Not Present Thought Process: Appropriate and Logical Affect: Affect Description: Appropriate and Calm Depressive Symptoms: Unhappiness Behavior: Patient Behavior: Appropriate and Cooperative Speech Pattern: Appropriate and Clear Vitals/I&O/Wt Last Vital Signs Temp 97.2 F L 11/05/21 06:00 Pulse 98 11/05/21 06:00 Resp 18 11/05/21 06:00 BP 121/84 11/05/21 06:00 Pulse Ox 97 11/05/21 06:00 Weight last 48 hrs Weight 66.224 kg Data NPU : 11/02/21 21:36 11/02/21 21:36 A&P Assessment and plan (1) Drug-induced psychotic disorder: Status: Acute (2) Methamphetamine abuse: Status: Acute Plan Plan: This is a 46-year-old female with chronic methamphetamine and alcohol abuse and induced psychosis. 1. we will observe her off of medications other than the standard as needed medications. 2. Continue every 15 minute checks for safety. 3. Encourage individual, group and milieu therapies. 4. Encourage sober living treatment after discharge at the highest level of care to which she is willing to commit. 5. We will monitor for safety for herself in the community prior to discharge. Involuntary Hold Information 96 Hour Hold: 96 Hour Involuntary Admission: Yes Attestations NPU Medical Necessity Statement*: Inpatient hospitalization is medically necessary and the clinically appropriate intervention at this time. We will initiate medications and make changes as indicated. Coding Level of Care Code Acute Patient Admitting Clerk for Thor Johnson Diagnoses Drug-induced psychotic disorder F19.959 Methamphetamine abuse F15.10
[2021-11-05] MEDS: nicotine 21 mg Patch 1 PATCH TRANSDERMA (09:17)
[2021-11-05] MEDS: hyDROXYzine 25 mg Capsule 50 MG PO (11:44)
[2021-11-05 13:34] VITALS: BP 102/66; PULSE 126; RESP 16; TEMP 36.8; O2SAT 96
[2021-11-05 20:43] VITALS: BP 127/86; PULSE 97; RESP 20; TEMP 36.7; O2SAT 97
[2021-11-05] MEDS: acetaminophen 325 mg Tablet 650 MG PO (22:26)
[2021-11-06 06:00] VITALS: BP 124/74; PULSE 110; RESP 20; TEMP 36.6; O2SAT 95
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
[2021-11-06 11:12] VITALS: BP 124/74; PULSE 110; RESP 20; TEMP 36.6; O2SAT 95
== END 2021-11-06 11:14 | disposition home or self-care (01) | DRG 897 ==
LOC: ER 22:40 → NP 11-03 05:44
PROVIDERS: Admitting Provider Psychiatry & Neurology Psychiatry; Emergency Provider Emergency Medicine; Visit Provider Psychiatry & Neurology Psychiatry
DX: F15.151 Other stimulant abuse with stimulant-induced psychotic disorder with hallucinations (principal); R45.851 Suicidal ideations; F15.10 Other stimulant abuse, uncomplicated; R45.850 Homicidal ideations; F17.210 Nicotine dependence, cigarettes, uncomplicated
CPT/HCPCS: 80053; 80306; 80307; 85025; 97165; 99285

== ENCOUNTER 2023-05-06 14:11 | Inpatient (IN) | payer MEDICAID, SELFPAY ==
[2023-05-06 14:36] VITALS: BP 117/79; PULSE 117; RESP 20; O2SAT 98
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
[2023-05-06] MEDS: haloperidol inj 5 mg/mL INJ 1 mL IM (14:41)
[2023-05-06] MEDS: diphenhydrAMINE 50 mg/mL SDV 1mL IM (14:41)
[2023-05-06] MEDS: LORazepam 2 mg/mL INJ 1 mL IM (14:41)
--- NOTE | 2023-05-06 14:43 | PC.PHAR ---
PT HAS [facility] PREFERRED PHARMACY. THEY HAVE NO PT ON FILE WITH THAT NAME/. 05/06/23
--- NOTE | 2023-05-06 14:44 | W.ED.PSYCHS ---
HPI - Psych General: Chief Complaint: Psychiatric Symptoms Stated Complaint: 96 hr hold Time Seen by Provider: 05/06/23 14:13 Source: patient, EMS and police Mode of arrival: EMS Limitations: no limitations History of Present Illness: 48-year-old female with a history of meth and abuse is brought in by police under 96-hour hold her place she has been psychotic likely meth induced psychosis she has been threatening to kill family members she is placed under 96-hour hold by family members. Here patient is combative screaming yelling stating she does not trust anyone and everyone is out to get her. Associated symptoms: Reports homicidal ideation Review of Systems Const: Denies: fever(s), chills, body aches or change in appetite ENMT: Denies: throat pain or dental pain Card: Denies: chest pain Resp: Denies: dyspnea GI: Denies: abdominal pain, nausea, vomiting or diarrhea Musc: Denies: neck pain or back pain Skin/Breast: Denies: rash Neuro: Denies: headache(s) Psych: Reports: irritability and homicidal ideation Gt/Lymph: Denies: easy bruising All/Imm: Denies: urticaria PFSH ED PFSH: Medical History No pertinent past medical history Social History Smoking and tobacco/nicotine status: current every day tobacco/nicotine user Alcohol intake: current Physical Exam Const: COMMON NORMALS: patient oriented x3 HENMT: COMMON NORMALS: normocephalic and atraumatic HEAD & SCALP: normocephalic and atraumatic Eye: COMMON NORMALS: Equal, round and reactive pupils present and EOMs intact bilaterally PUPIL: Yes Equal, round and reactive pupils present Neck/C-Spine: COMMON NORMALS: full ROM and supple Chest: COMMONS NORMALS: normal inspection of the chest and normal palpation of entire chest wall Resp: COMMON NORMALS: normal respiratory effort, No retractions, No use of accessory muscles and clear to auscultation bilaterally AUSCULTATION: clear to auscultation bilaterally Cardio: COMMON NORMALS: regular rate, regular rhythm and No murmurs present (Cardio) RATE: regular rate RHYTHM: regular rhythm GI: COMMON NORMALS: Normal to inspection, nondistended, normoactive bowel sounds present, Soft to palpation, non-tender and no masses PALPATION: Yes Soft to palpation Extremity: COMMON NORMALS: normal to inspection and full ROM Neuro: COMMON NORMALS: patient oriented x3, moves all extremities and no focal motor deficits Psych: COMMON NORMALS: mental status grossly normal ACTIVITY/MOTOR BEHAVIOR: Yes psychomotor agitation and Yes hyperactivity MOOD & AFFECT: Yes elevated mood, Yes irritable and Yes hostile affect THOUGHT PROCESS: disorganized THOUGHT CONTENT: Yes Homicidality present Skin: COMMON NORMALS: no rashes or lesions noted and no wounds GENERAL SKIN EXAM: no rashes or lesions noted Face to Face: Restrn/Seclusion Events leading up to initiation: Verbalizing threat to self or others and Combative/Striking out at staff or others Evaluation of patient's immediate situation: Alert and oriented, No signs of physical distress and Signs of psychological distress Patient reaction since intervention applied: Continued attempts/displays harmful behavior Recent labs reviewed: Yes Review of medications: Yes Patient's current medical/behavioral condition: No new concerns since last ROS Need for restraint or seclusion is: Continued Attending notified: Yes Course Vital Signs: Vital signs: Vital Signs Pulse Rate 72 05/06/23 18:15 Respiratory Rate 18 05/06/23 16:13 Blood Pressure 126/86 05/06/23 18:15 Pulse Oximetry 99 05/06/23 18:15 Oxygen Delivery Me thod Room Air 05/06/23 16:15 [facility] - Psych Medical Decision Making Patient presents here with acute psychosis likely drug-induced she is homicidal as well she had been placed on a 96-hour hold she became combative here had to be physically and chemically restrained she is now awake and has been more cooperative will admit to the psych unit at this time. Medical Records I reviewed the patient's medical records. Lab Data I reviewed the patient's lab results. 05/06/23 15:22 05/06/23 15:22 No radiology studies performed this visit Discharge Plan Discharge Patient Disposition: Admitted As Inpatient Admit Provider: Larry Callahan Clinical Impression: Drug-induced psychotic disorder, Methamphetamine abuse, Homicidal ideation Condition: Stable Coding Level of Care Code ED Environmental Remediation Engineer for Thor Johnson
[2023-05-06 15:31] LABS: Basophils % 0.3 %; Hematocrit 37.5 % (36-47); Lymphocytes % 19.5 %; Mean Corpuscular Hemoglobin 27.8 pg (27-33); Mean Platelet Volume 9.1 fL (7.4-10.4); Monocytes # 1.2 10^3/uL (0.2-0.9); Monocytes % 7.4 %; Neutrophils # 11.26 10^3/uL (1.8-7.7); Neutrophils % 72.5 %; Nucleated Red Blood Cells % 0 %; Platelet Count 414 10^3/cmm (157-399); Red Blood Count 4.31 10^6/uL (3.85-5.65); Red Cell Distribution Width 15.3 % (12.1-15.1); White Blood Count 15.52 10^3/uL (3.29-11.43)
[2023-05-06 15:56] LABS: Alanine Aminotransferase 14 U/L (0-33); Alkaline Phosphatase 77 U/L (35-105); Anion Gap 14.7 (5-19); Aspartate Amino Transferase 15 U/L (0-32); Blood Urea Nitrogen 16 mg/dL (6-20); Calcium 9.1 mg/dL (8.5-10.5); Carbon Dioxide 25 mmol/L (22-29); Chloride 105 mmol/L (98-107); Globulin 2.4 g/dL (1.3-4.6); Glomerular Filtration Rate 105.8 mL/min (90-130); Glucose 94 mg/dL (65-115); Osmolality Calculated 293 mOsm/kg (285-295); Potassium 3.7 mmol/L (3.5-5.1); Sodium 141 mmol/L (136-145); Total Bilirubin 0.2 mg/dL (0.15-1.2); Total Protein 6.4 g/dL (6.6-8.7)
[2023-05-06 15:57] LABS: Acetaminophen < 5.0 ug/mL (10-30); Alcohol Level < 10 mg/dL (0-10); Salicylate < 0.3 mg/dL (3-10)
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
[2023-05-06 16:13] VITALS: BP 129/89; PULSE 75; RESP 18; O2SAT 94
[2023-05-06 16:15] VITALS: BP 117/79; PULSE 115; O2SAT 99
[2023-05-06 17:15] VITALS: BP 129/89; PULSE 75; O2SAT 100
[2023-05-06 18:15] VITALS: BP 126/86; PULSE 72; O2SAT 99
--- NOTE | 2023-05-06 19:28 | PC.NURSE ---
PATIENT DRESSED OUT AND BELONGINGS REMOVED. THIS NURSE AND OTHER STAFF NURSE WERE UNABLE TO REMOVE PATIENT'S THUMB RINGS, BRACELETS, AND EARRINGS AT THIS TIME.
--- NOTE | 2023-05-06 19:50 | PC.NURSE ---
Report given to PAKO Euceda in NPU. All questions and concerns addressed at time report.
--- NOTE | 2023-05-06 20:06 | PC.NURSE ---
PATIENT TRANSFERRED TO NPU ROOM 154. PRIOR TO TRANSFER OF PATIENT TO NPU, VERBALIZED TO NURSING STAFF THAT TRANSFER OF PATIENT VIA STRETCHER WAS ALL RIGHT. NPU STAFF AND SECURITY ALSO VERBALIZED IT WAS OKAY. PT TRANSFERRED WITH ALL PAPERWORK AND BELONGINGS IN STABLE CONDITION.
--- NOTE | 2023-05-06 20:09 | PC.NURSE ---
Pt arrived to NPU on restraint bed non-restrained, but still sedated w/security and RN at side. Pt total assist to transfer to NPU bed. Patients only response is to moan, however was resistive to assist in transfer and rolling onto new bed. LCTA bilaterally, respirations even and non-labored. HRRR. Unable to complete admission at this time, will attempt when pt is awake.
--- NOTE | 2023-05-07 00:27 | PC.NURSE ---
Unable to obtain vitals or have admission paperwork signed due to Patient sedated/resistive to vitals
[2023-05-07 06:00] VITALS: RESP 18
--- NOTE | 2023-05-07 06:37 | PC.NURSE ---
Unable to obtain vitals due to patients current state. RR obtained.
--- NOTE | 2023-05-07 07:45 | P.NPUHP_ITS ---
Providers/Chief Complaint Admitting Physician: Larry Callahan MD Chief Complaint: 96 hr hold HPI NPU History of Present Illness Danielle Weber is a 48 year old female who presented to the emergency department with the following report: Chief Complaint: Psychiatric Symptoms Stated Complaint: 96 hr hold Time Seen by Provider: 05/06/23 14:13 Source: patient, EMS and police Mode of arrival: EMS Limitations: no limitations History of Present Illness: 48-year-old female with a history of meth and abuse is brought in by police under 96-hour hold her place she has been psychotic likely meth induced psych osis she has been threatening to kill family members she is placed under 96-hour hold by family members. Here patient is combative screaming yelling stating she does not trust anyone and everyone is out to get her. Associated symptoms: Reports homicidal ideation She was admitted to the neuropsychiatric unit for definitive treatment of those issues. She had a very active entry into the hospital with significant conflict in the emergency department with eventual four-point restraints for significant period of time and as needed medication. She was given medication prior to coming to the unit which has rendered her unable to participate in the interview process. She is barely arousable but presented in clear methamphetamine rage/aggression so she continues to be somnolent most likely secondary to the medication and crashing from her methamphetamine use. She was unable to give any functional history or assessment of her condition and treatment or any interventions since her October 2021 discharge from our inpatient unit. An excerpt of that discharge summary is included below given we have no information that we can extract from her. This manual writer did see her interacting with staff in the emergency department when they were managing her restraint etc. while down there was another patient however that is the most alert that she has been. We will attempt to gather information again tomorrow. Per her 11/06/2021 [facility] inpatient psychiatric discharge summary: Discharge Diagnosis (1) Drug-induced psychotic disorder: Status: Acute (2) Methamphetamine abuse: Status: Acute Reason for Visit Reason for Visit: SI Brief History: History of Present Illness Danielle Weber is a 46 year old female Who was admitted to our emergency dep artment with the following report: 38-year-old female was brought in by police under 96-hour hold. Patient been using meth per family and made threats to cut her head off a machete. She is fairly adamant here she is not suicidal or homicidal she is a little agitated and seems to be under the influence. She denies any worsening improving factors is not on any meds at this time. Associated symptoms: Reports auditory hallucinations and depression We have to affidavits which state the following: Hearing voices (the voices have told her to harm herself) Hallucinating Called the police on me for no reason (she wanted them to check on me) Uses methamphetamine Hearing voices, hallucinating Voices told her to cut her head off with a machete Threatened to cut boyfriend head off with a machete. She was admitted to the neuropsychiatry unit for definitive treatment of these issues. She is difficult to interview because she rambles on about her delusions. Evidently she looked up metal fang on [employer] and now she is being harassed by metal fang. She hears his voice and she sees his images on windows and in holograms. she felt threatened by him and was worried that he was going to harass her daughter. She feels like anybody would have the same concerns. She called the police to see if they would do a wellness check. They only called her daughter but it made her and her angry. Her daughter filled out affidavits and she is on a 96-hour hold. She said that she started using methamphetamine after her 3 children were born. About 1998. At first it was only sporadic but about 6 years ago it became regular use. She has been hearing voices and seeing things for the last 4 years. She is not sure if it is the methamphetamine or not but realizes that it could be. She denies any significant problems in her childhood. She became and dropped out of high school but got her GED. Her has been in alf for about 6 years. He has about 5 more years. She has a boyfriend that her knows about and is okay with that situation. The boyfriend does not talk to her or anybody else. She alluded to some possible mistreatment but then denied any m istreatment from him. [place] in [place] Her boyfriend has put a roof over the tent. Previously she lived in her parent's garage but decided she had overstayed her welcome there. She has stayed in the [place] before. She seems satisfied with that current situation. She has been on antidepressants before. She said Wellbutrin made cigarettes taste awful and she stopped using it. She was on BuSpar when she was 14 years old. She had gone to the clinic hoping for something that would be in upper and give her an immediate affect. She did not like the BuSpar and stopped taking it. She smokes and said that not having a cigarette was about the only thing that could make her cry. She was really wanting a cigarette this morning. Hospital Course She slowly acclimated to the individual, group and milieu therapies provided. She was not given any medications other than her home medications for her medical illness. She tolerated these doses and showed steady improvement during her stay. She was able to contract for safety outside hospital prior to discharge. During the hospitalization, patient had routine laboratory studies which were within normal limits except for few outliers. Additionally there was a general medical evaluation which was also within normal limits and revealed no new acute processes. Discharge Summary: At the time of discharge, lethality was denied and psychosis was resolving. Mood and anxiety were well managed. Patient endorsed a plan to follow-up with the aftercare recommendations of the treatment team. She had a plan to go live with her daughter in [place] and start outpatient drug rehabilitation. If that did not work she agreed to residential drug rehabilitation. Patient was evaluated and deemed to be absent credible lethality, and had achieved the maximum benefit from an inpatient hospitalization, so was discharged. Meds NPU Home Medications Medication Instructions Recorded Confirmed Last Taken Type No Known Home Medications 05/06/23 05/06/23 Unknown History Allergies Allergy/AdvReac Type Severity Reaction Status Date / Time No Known Allergies Allergy Verified 12/09/22 10:44 [facility] NPU PFS: Medical History No pertinent past medical history Social History Smoking and tobacco/nicotine status: current every day tobacco/nicotine user Alcohol intake: current Mental Status Exam MSE Comments: This is a well-nourished well-developed white female in hospital scrubs with poor grooming and no eye contact. No abnormal movements except for significant psychomotor retardation. Uncooperative with exam in no acute distress. Speech was absent except for mumbling with attempts to arouse. Mood not described affect subdued. Thought process not observed. Thought content: Patient did not respond to questions about lethality but was lying quietly and peacefully without response. There were no delusions reported or noted and she did not respond to questions about perceptual disturbances but again was lying in bed calmly other than with attempts to be aroused. Attention and concentration as well as memory were impaired but none were formally tested. She is not alert nor oriented. Insight, judgment and impulse control were not evaluated in this encounter. Vitals/I&O/Wt Last Vital Signs Pulse 72 05/06/23 18:15 Resp 18 05/07/23 06:00 BP 126/86 05/06/23 18:15 Pulse Ox 99 05/06/23 18:15 O2 Del Method Room Air 05/06/23 20:14 Data NPU 05/06/23 15:22 05/06/23 15:22 A&P Assessment and plan (1) Drug-induced psychotic disorder: (2) Methamphetamine abuse: (3) Homicidal ideation: (4) Suicidal ideation: (5) Psychosis: (6) Aggression: (7) Withdrawal from methamphetamine: Plan This is a 48-year-old female with a history of chronic methamphetamine use and likely methamphetamine induced psychosis but with psychosis nonetheless who presents subdued and fairly unarousable secondary to as needed medication in the emergency department as well as methamphetamine withdrawal. 1. we will observe her off of medications other than the standard as needed medications. 2. Continue every 15 minute checks for safety. 3. Encourage individual, group and milieu therapies. 4. Encourage sober living treatment after discharge at the highest level of care to which she is willing to commit. 5. We will attempt to get collateral information given her inability as a historian. Involuntary Hold Information 96 Hour Hold: 96 Hour Involuntary Admission: Yes Attestations NPU Medical Necessity Statement*: Inpatient hospitalization is medically necessary and the clinically appropriate intervention at this time. We will initiate medications and make changes as indicated. She will be in the hospital for over 2 midnights. Likely length of stay 4-6 days Coding Level of Care Code Acute Code for g Fwd Diagnoses Drug-induced psychotic disorder F19.959 Methamphetamine abuse F15.10 Homicidal ideation R45.850 Suicidal ideation R45.851 Psychosis F29 Aggression R46.89 Withdrawal from methamphetamine F15.93
--- NOTE | 2023-05-07 08:47 | PC.OT ---
OT EVALUATION ORDERS RECEIVED. PER NURSING; HOLD DUE TO AGITATION
[2023-05-07] MEDS: ibuprofen 600 mg Tablet PO (12:50)
--- NOTE | 2023-05-07 12:52 | PC.NURSE ---
Attempted to do patient's admission assessment twice today. She would not respond the first time with anything other than moans and groans. The second time she stated she didn't want to talk because she couldn't hold her eyes open. However, she did not appear or sound agitated, she just seemed to be incoherent and extremely tired.
[2023-05-07 13:49] VITALS: PULSE 76; RESP 16; TEMP 37
--- NOTE | 2023-05-07 19:44 | PC.NURSE ---
Attempted admission assessment again, pt states I'm tired and ignores this nurse. Will attempt at a later time.
[2023-05-07 20:04] VITALS: BP 98/65; PULSE 90; RESP 20; TEMP 36.4; O2SAT 96
[2023-05-08 06:00] VITALS: BP 109/71; PULSE 82; RESP 17; TEMP 36.3; O2SAT 97
--- NOTE | 2023-05-08 08:13 | PC.NURSE ---
observed security support analyst Willam in disposing of 2 homemade weed pipes and an empty vial with white residue in it.
--- NOTE | 2023-05-08 08:59 | PC.NURSE ---
Denies avh and si/hi. Patient cooperative with assessment, but did mention being frustrated that she was here and said she wanted to see the affidavit that got me put in here. Patient also asked what day it was and how many days she had been here. This RN did get the patient to answer the initial admission assessment questions, but her answers were clipped and blocking. She answered no or I don't know to most questions, including the questions about drug usage.
[2023-05-08] MEDS: ibuprofen 600 mg Tablet PO (10:46)
[2023-05-08] MEDS: diphenhydrAMINE 50 mg Capsule PO (10:51)
--- NOTE | 2023-05-08 12:09 | W.PM.NPUPNS ---
Subjective NPU Subjective: Patient presented today reporting that she is doing okay once again was fairly unarousable when this contract technical writer engaged. She was more alert and did get up during the day and eat at 1 point but in general has continued to be lethargic consistent with methamphetamine withdrawal. When she did speak she gave strange responses consistent with psychosis per staff reports. Mental Status Exam MSE Comments: This is a well-nourished well-developed white female in hospital scrubs with poor grooming and no eye contact. No abnormal movements except for significant psychomotor retardation. Uncooperative with exam in no acute distress. Speech was absent except for mumbling with attempts to arouse. Mood not described affect subdued. Thought process not observed. Thought content: Patient did not respond to questions about lethality but was lying quietly and peacefully without response. There were no delusions reported or noted and she did not respond to questions about perceptual disturbances but again was lying in bed calmly other than with attempts to be aroused. Attention and concentration as well as memory were impaired but none were formally tested. She is not alert nor oriented. Insight, judgment and impulse control were not evaluated in this encounter. Vitals/I&O/Wt Last Vital Signs Temp 97.4 F L 05/08/23 06:00 Pulse 82 05/08/23 06:00 Resp 17 05/08/23 06:00 BP 109/71 05/08/23 06:00 Pulse Ox 97 05/08/23 06:00 O2 Del Method Room Air 05/08/23 06:00 Weight last 48 hrs Weight 56.699 kg Data NPU 05/06/23 15:22 05/06/23 15:22 A&P Assessment and plan (1) Drug-induced psychotic disorder: (2) Methamphetamine abuse: (3) Homicidal ideation: (4) Suicidal ideation: (5) Psychosis: (6) Aggression: (7) Withdrawal from methamphetamine: Plan This is a 48-year-old female with a history of chronic methamphetamine use and likely methamphetamine induced psychosis but with psychosis nonetheless who presents subdued and fairly unarousable secondary to as needed medication in the emergency department as well as methamphetamine withdrawal. 1. we will observe her off of medications other than the standard as needed medications. 2. Continue every 15 minute checks for safety. 3. Encourage individual, group and milieu therapies. 4. Encourage sober living treatment after discharge at the highest level of care to which she is willing to commit. 5. We will attempt to get collateral information given her inability as a historian. Likely need for 21-day hold. Involuntary Hold Information 96 Hour Hold: 96 Hour Involuntary Admission: Yes 96 Hour Hold Ending Date: 05/10/23 96 Hour Hold Ending Time: 14:13 Attestations NPU Medical Necessity Statement*: Inpatient hospitalization is medically necessary and the clinically appropriate intervention at this time. We will initiate medications and make changes as indicated. Likely length of stay 4-6 days Coding Level of Care Code Acute Code for Chg Fwd Diagnoses Drug-induced psychotic disorder F19.959 Methamphetamine abuse F15.10 Homicidal ideation R45.850 Suicidal ideation R45.851 Psychosis F29 Aggression R46.89 Withdrawal from methamphetamine F15.93
[2023-05-08] MEDS: nicotine 2 mg Gum BUCCAL (17:00)
[2023-05-08 18:03] LABS: Cocaine Screen Urine Negative (Negative); PCP Screen Urine Negative (Negative); THC Screen Urine Positive (Negative)
[2023-05-08 18:04] LABS: Amphetamines Screen Urine Positive (Negative); Barbiturates Screen Urine Negative (Negative); Benzodiazepines Screen Urine Positive (Negative); Opiate Screen Urine Negative (Negative)
[2023-05-08 21:23] VITALS: BP 109/68; PULSE 75; RESP 16; TEMP 37.1; O2SAT 96
[2023-05-09 06:00] VITALS: BP 117/81; PULSE 87; RESP 17; TEMP 36.4; O2SAT 99
[2023-05-09 08:15] LABS: Bilirubin Urine Neg (Negative); Blood Urine 2+ (Negative); Glucose Urine UA Norm (Normal); Ketones Urine Negative (Negative); Nitrate Urine Negative (Negative); Protein Urine Neg (Negative); Specific Gravity, Urine 1.015 (1.005-1.030); Urine Appearance Clear (CLEAR); Urine Color Yellow (Yellow); pH Urine 6 (5-7)
[2023-05-09 08:16] LABS: Add Urine Microscopic? YES; Leukocyte Esterase Urine Negative (Negative); Urobilinogen Urine Norm (Negative)
[2023-05-09 08:23] LABS: Add Urine Culture? No; Bacteria Urine TRACE /hpf; Mucus Urine 1+ /hpf; RBC Urine 0-4 /hpf (0-2); Squamous Epithelial Cell Urine 0-4 /hpf (0-5); WBC Urine 0-4 /hpf (0-5)
[2023-05-09] MEDS: diphenhydrAMINE 50 mg Capsule PO (11:39)
--- NOTE | 2023-05-09 11:40 | PC.NURSE ---
Administered 50mg Benadryl PO to patient for itching.
[2023-05-09 14:00] VITALS: BP 148/90; PULSE 86; RESP 17; TEMP 36.4; O2SAT 96
[2023-05-09] MEDS: nicotine 2 mg Gum BUCCAL ×2 (15:11→18:04)
--- NOTE | 2023-05-09 18:48 | W.PM.NPUPNS ---
Subjective NPU Subjective: Patient presented today reporting that she is not needing to be in the hospital nor is she needing a 21-day hold. However she had multiple statements that were clearly veterans employment representative of delusions or hallucinations that she reported knowing this race and sports book writer from coming [place] and suggesting that the social welfare research worker had been in her room putting something in her ear that somehow related to spiders. She was very irritable and angry reporting that she needed to just be discharged. Mental Status Exam MSE Comments: This is a well-nourished well-developed white female in hospital scrubs with poor grooming and no eye contact. No abnormal movements except for significant psychomotor agitation. Uncooperative with exam in moderate distress. Speech was increased rate and volume. Mood described as fine, affect irritable. Thought process disorganized. Thought content: Patient denied suicidal or homicidal ideation, there were no delusions reported but clear paranoia noted, she denied auditory or visual hallucinations were reported things that seem to represent auditory and visual hallucinations. Attention and concentration as well as memory were impaired but none were formally tested. She is alert and oriented to person and place. Insight, judgment and impulse control were impaired. Vitals/I&O/Wt Last Vital Signs Temp 97.8 F 05/09/23 20:02 Pulse 76 05/09/23 20:02 Resp 16 05/09/23 20:02 BP 123/78 05/09/23 20:02 Pulse Ox 94 05/09/23 20:02 O2 Del Method Room Air 05/09/23 20:02 Weight last 48 hrs Weight 56.699 kg Data NPU 05/06/23 15:22 05/06/23 15:22 A&P Assessment and plan (1) Drug-induced psychotic disorder: (2) Methamphetamine abuse: (3) Homicidal ideation: (4) Suicidal ideation: (5) Psychosis: (6) Aggression: (7) Withdrawal from methamphetamine: Plan This is a 48-year-old female with a history of chronic methamphetamine use and likely methamphetamine induced psychosis but with psychosis nonetheless who presents subdued and fairly unarousable secondary to as needed medication in the emergency department as well as methamphetamine withdrawal. 1. we will observe her off of medications other than the standard as needed medications. 2. Continue every 15 minute checks for safety. 3. Encourage individual, group and milieu therapies. 4. Encourage sober living treatment after discharge at the highest level of care to which she is willing to commit. 5. We will attempt to get collateral information given her inability as a historian. Filed 21-day hold paperwork today. Involuntary Hold Information 96 Hour Hold: 96 Hour Involuntary Admission: Yes 96 Hour Hold Ending Date: 05/10/23 96 Hour Hold Ending Time: 14:13 Attestations NPU Medical Necessity Statement*: Inpatient hospitalization is medically necessary and the clinically appropriate intervention at this time. We will initiate medications and make changes as indicated. Likely length of stay 4-6 days Coding Level of Care Code Acute Code for Chg Fwd Diagnoses Drug-induced psychotic disorder F19.959 Methamphetamine abuse F15.10 Homicidal ideation R45.850 Suicidal ideation R45.851 Psychosis F29 Aggression R46.89 Withdrawal from methamphetamine F15.93
[2023-05-09 20:02] VITALS: BP 123/78; PULSE 76; RESP 16; TEMP 36.6; O2SAT 94
[2023-05-10 06:00] VITALS: BP 118/77; PULSE 90; RESP 18; TEMP 36.6; O2SAT 98
[2023-05-10] MEDS: nicotine 2 mg Gum BUCCAL ×2 (06:37→18:07)
--- NOTE | 2023-05-10 09:21 | PC.NURSE ---
PT CURRENTLY DENIES SI/HI/AH/VH. PT STATES I KEEP HEARING THIS CRACKLING NOISE AND MY HEAD IS OFF. PT ALSO IS EXPERIENCING PARANOID BEHAVIORS BELIEVING THAT SOMEONE MESSED WITH HER FOOD. PT WAS INFORMED THAT NOBODY HAS MESSED WITH HER FOOD AND YELLED IM NOT TALKING ABOUT YOU. PT WISHES TO SPEAK WITH THE PHYSICIAN. PT WAS INFORMED THAT THE PHYSICIAN SEES EVERYBODY EVERYDAY. PT VERBALIZED UNDERSTANDING. PT CURRENT NEEDS ARE MET AT THIS TIME.
[2023-05-10 11:15] LABS: Chlamydia Trachomatis RNA TMA NOT DETECTED (NOT DETECTED); Neisseria Gonorrhoeae RNA, TMA NOT DETECTED (NOT DETECTED)
[2023-05-10] MEDS: hyDROXYzine 25 mg Capsule 50 MG PO (12:55)
[2023-05-10 14:00] VITALS: BP 120/62; PULSE 101; RESP 20; TEMP 36.4; O2SAT 93
--- NOTE | 2023-05-10 17:12 | P.NPUPN_ITS ---
Subjective NPU Subjective: Patient presented today reported she was doing better but continues to have loud outbursts per staff and direct examination. She was requesting that the 21-day hold be rescinded and we discussed the importance of her addressing her addiction and psychosis but she continues to refuse medication at this time. Mental Status Exam MSE Comments: This is a well-nourished well-developed white female in hospital scrubs with poor grooming and no eye contact. No abnormal movements except for significant psychomotor agitation. Uncooperative with exam in moderate distress. Speech was increased rate and volume. Mood described as fine, affect irritable. Thought process disorganized. Thought content: Patient denied suicidal or homicidal ideation, there were no delusions reported but clear paranoia noted, she denied auditory or visual hallucinations were reported things that seem to represent auditory and visual hallucinations. Attention and concentration as well as memory were impaired but none were formally tested. She is alert and oriented to person and place. Insight, judgment and impulse control were impaired. Vitals/I&O/Wt Last Vital Signs Temp 97.5 F L 05/10/23 14:00 Pulse 101 H 05/10/23 14:00 Resp 20 H 05/10/23 14:00 BP 120/62 05/10/23 14:00 Pulse Ox 93 05/10/23 14:00 O2 Del Method Room Air 05/10/23 14:00 Data NPU 05/06/23 15:22 05/06/23 15:22 A&P Assessment and plan (1) Drug-induced psychotic disorder: (2) Methamphetamine abuse: (3) Homicidal ideation: (4) Suicidal ideation: (5) Psychosis: (6) Aggression: (7) Withdrawal from methamphetamine: Plan This is a 48-year-old female with a history of chronic methamphetamine use and likely methamphetamine induced psychosis but with psychosis nonetheless who presents subdued and fairly unarousable secondary to as needed medication in the emergency department as well as methamphetamine withdrawal. 1. we will observe her off of medications other than the standard as needed medications. 2. Continue every 15 minute checks for safety. 3. Encourage individual, group and milieu therapies. 4. Encourage sober living treatment after discharge at the highest level of care to which she is willing to commit. 5. We will attempt to get collateral information given her inability as a historian. Filed 21-day hold paperwork yesterday. Involuntary Hold Information 96 Hour Hold: 96 Hour Involuntary Admission: Yes 96 Hour Hold Ending Date: 05/10/23 96 Hour Hold Ending Time: 14:13 Attestations NPU Medical Necessity Statement*: Inpatient hospitalization is medically necessary and the clinically appropriate intervention at this time. We will initiate medications and make changes as in dicated. Likely length of stay 4-6 days Coding Level of Care Code Acute Code for Chg Fwd Diagnoses Drug-induced psychotic disorder F19.959 Methamphetamine abuse F15.10 Homicidal ideation R45.850 Suicidal ideation R45.851 Psychosis F29 Aggression R46.89 Withdrawal from methamphetamine F15.93
[2023-05-10] MEDS: ibuprofen 600 mg Tablet PO (19:46)
[2023-05-10 20:10] VITALS: BP 122/83; PULSE 80; RESP 18; TEMP 36.8; O2SAT 97
--- NOTE | 2023-05-10 20:35 | PC.NURSE ---
PT IN BED RESTING OBSEREVED TALKING TO SELF OR UNSEEN OTHERS. PT STATED WELL I SHOULD GO AHEAD AND BE HONEST, I AM HEARING VOICES AND GOD SHOWS ME STUFF SOMETIMES, HE IS REALLY FUNNY AND HAS A SENSE OF HUMOR. PT IS OVERLY HYPERFOCUSED ON HAVING AN STD, GONORRHEA SPECIFICALLY. LABS REVIEWED WITH PT BUT SHE DOES NOT BELIEVE ANY BLOOD WAS TAKEN THE SECOND TIME FOR THE TEST. RN WENT INTO DETAIL THAT SOMETIMES WE USE THE BLOOD THAT IS ALREADY IN THE LAB, PT CONTINUES TO INSIST SHE HAS GONORRHEA AND SHE STATES SHE HAS AN ODOR TO HER VAGINAL AREA ALONG WITH 6/10 PELVIC AND KIDNEY PAIN. PT RECEIVED IBUPROFEN ORDERED FOR PAIN. PT WAS ALSO COMPLAINING OF HAVING ATHLETES FOOT AND WORMS ON MY 2ND TOE, THE KIND THAT CUT OFF THE CIRCULATION. RN INFORMED PT THAT NO WORMS WERE OBSERVED TO BE ON HER TOE. NEW ORDERS WERE RECEIVED FOR LAMISIL TO AFFECTED AREA BID. PT WAS RELIEVED SHE WAS ABLE TO GET MEDICATIONS. PT DENIES SI/HI AND VH, BUT REPORTED ABOVE ENDORSES AUDITORY HALLUCINATIONS. ALL QUESTIONS ANSWERED AND SUPPORT VOICED.
[2023-05-10] MEDS: terbinafine 1% Cream 15 gm 1 APPLIC TOPICAL (20:58)
[2023-05-11 06:00] VITALS: BP 114/62; PULSE 79; RESP 18; O2SAT 96
[2023-05-11] MEDS: OLANZapine 5 mg ODT PO (06:35)
--- NOTE | 2023-05-11 06:38 | PC.NURSE ---
PT UP TO NURSES STATION REQUESTING SOMETHING STRONG FOR MY ANXIETY. PT WAS GIVEN ZYDIS 5 MG ORDERED FOR REPORTED INCREASED ANXIETY. PT TOOK MEDICATION AND WALKED BACK TO ROOM.
--- NOTE | 2023-05-11 08:01 | P.NPUPN_ITS ---
Subjective NPU Subjective: Patient presented today reporting that she is feeling a little better. We once again discussed medication and discussed the risks, benefits and alternatives of starting Abilify and she understood and agreed to proceed as documented in this note. She continued to have delusional content per staff and direct observation. Mental Status Exam MSE Comments: This is a well-nourished well-developed white female in hospital scrubs with poor grooming and no eye contact. No abnormal movements except for resolving psychomotor agitation. More cooperative with exam in mild distress. Speech was increased rate and volume. Mood described as fine, affect less irritable. Thought process more organized. Thought content: Patient denied suicidal or homicidal ideation, there were no delusions reported but clear paranoia noted, she denied auditory or visual hallucinations were reported things that seem to represent auditory and visual hallucinations. Attention and concentration as well as memory were impaired but none were formally tested. She is alert and oriented to person and place. Insight, judgment and impulse control were impaired. Vitals/I&O/Wt Last Vital Signs Temp 98.3 F 05/10/23 20:10 Pulse 79 05/11/23 06:00 Resp 18 05/11/23 06:00 BP 114/62 05/11/23 06:00 Pulse Ox 96 05/11/23 06:00 O2 Del Method Room Air 05/10/23 20:10 Data NPU 05/06/23 15:22 05/06/23 15:22 A&P Assessment and plan (1) Drug-induced psychotic disorder: (2) Methamphetamine abuse: (3) Homicidal ideation: (4) Suicidal ideation: (5) Psychosis: (6) Aggression: (7) Withdrawal from methamphetamine: Plan This is a 48-year-old female with a history of chronic methamphetamine use and likely methamphetamine induced psychosis but with psychosis nonetheless who presents subdued and fairly unarousable secondary to as needed medication in the emergency department as well as methamphetamine withdrawal. 1. Start Abilify 10 mg p.o. daily. 2. Continue every 15 minute checks for safety. 3. Encourage individual, group and milieu therapies. 4. Encourage sober living treatment after discharge at the highest level of car e to which she is willing to commit. 5. We will attempt to get collateral information given her inability as a historian. Filed 21-day hold paperwork 05/10/2023. Involuntary Hold Information 96 Hour Hold: 96 Hour Involuntary Admission: Yes 96 Hour Hold Ending Date: 05/10/23 96 Hour Hold Ending Time: 14:13 Attestations NPU Medical Necessity Statement*: Inpatient hospitalization is medically necessary and the clinically appropriate intervention at this time. We will initiate medications and make changes as indicated. Likely length of stay 4-6 days Coding Level of Care Code Acute Code for Chg Fwd Diagnoses Drug-induced psychotic disorder F19.959 Methamphetamine abuse F15.10 Homicidal ideation R45.850 Suicidal ideation R45.851 Psychosis F29 Aggression R46.89 Withdrawal from methamphetamine F15.93
[2023-05-11] MEDS: ARIPiprazole 10 mg Tablet PO (10:16)
[2023-05-11 14:00] VITALS: BP 100/65; PULSE 76; RESP 18; TEMP 37.1; O2SAT 97
[2023-05-11 20:14] VITALS: BP 110/65; PULSE 77; RESP 14; TEMP 36.9; O2SAT 95
[2023-05-12 06:00] VITALS: BP 107/68; PULSE 74; RESP 15; TEMP 36.8; O2SAT 97
[2023-05-12] MEDS: hyDROXYzine 25 mg Capsule 50 MG PO ×2 (07:20→13:20)
[2023-05-12] MEDS: nicotine 2 mg Gum BUCCAL ×4 (07:23→20:31)
--- NOTE | 2023-05-12 08:54 | W.PM.NPUPNS ---
Subjective NPU Subjective: Patient is reporting that she is okay. She still does not want to have a 21-day hold given however she is to be understanding that the hold can be ended at anytime with her cognitive improvement. She did not report any specific side effects to the Abilify. Mental Status Exam MSE Comments: This is a well-nourished well-developed white female in hospital scrubs with improving grooming and no eye contact. Condition no abnormal movements except for resolving psychomotor agitation. More cooperative with exam in mild distress. Speech was increased rate and volume. Mood described as fine, affect less irritable. Thought process more organized. Thought content: Patient denied suicidal or homicidal ideation, there were no delusions reported but clear paranoia noted, she denied auditory or visual hallucinations were reported things that seem to represent auditory and visual hallucinations. Attention and concentration as well as memory were impaired but none were formally tested. She is alert and oriented to person and place. Insight, judgment and impulse control were impaired. Vitals/I&O/Wt Last Vital Signs Temp 98.3 F 05/12/23 06:00 Pulse 74 05/12/23 06:00 Resp 15 05/12/23 06:00 BP 107/68 05/12/23 06:00 Pulse Ox 97 05/12/23 06:00 O2 Del Method Room Air 05/12/23 06:00 Weight last 48 hrs Weight 61.235 kg Data NPU 05/06/23 15:22 05/06/23 15:22 A&P Assessment and plan (1) Drug-induced psychotic disorder: (2) Methamphetamine abuse: (3) Homicidal ideation: (4) Suicidal ideation: (5) Psychosis: (6) Aggression: (7) Withdrawal from methamphetamine: Plan This is a 48-year-old female with a history of chronic methamphetamine use and likely methamphetamine induced psychosis but with psychosis nonetheless who presents subdued and fairly unarousable secondary to as needed medication in the emergency department as well as methamphetamine withdrawal. 1. Started Abilify 10 mg p.o. daily. 2. Continue every 15 minute checks for safety. 3. Encourage individual, group and milieu therapies. 4. Encourage sober living treatment after discharge at the highest level of care to which she is willing to commit. 5. We will attempt to get collateral information given her inability as a historian. Filed 21-day hold paperwork 05/10/2023. Involuntary Hold Information 96 Hour Hold: 96 Hour Involuntary Admission: Yes 96 Hour Hold Ending Date: 05/10/23 96 Hour Hold Ending Time: 14:13 Attestations NPU Medical Necessity Statement*: Inpatient hospitalization is medically necessary and the clinically appropriate intervention at this time. We will initiate medications and make changes as indicated. Likely length of stay 4-6 days Coding Level of Care Code Acute Code for Chg Fwd Diagnoses Drug-induced psychotic disorder F19.959 Methamphetamine abuse F15.10 Homicidal ideation R45.850 Suicidal ideation R45.851 Psychosis F29 Aggression R46.89 Withdrawal from methamphetamine F15.93
[2023-05-12] MEDS: ARIPiprazole 10 mg Tablet PO (08:59)
[2023-05-12] MEDS: terbinafine 1% Cream 15 gm 1 APPLIC TOPICAL ×2 (08:59→18:05)
[2023-05-12 14:00] VITALS: BP 120/65; PULSE 81; RESP 18; TEMP 36.8; O2SAT 97
[2023-05-12] MEDS: simethicone 80 mg Chew PO (17:33)
[2023-05-12] MEDS: diphenhydrAMINE 50 mg Capsule PO (20:31)
[2023-05-12 21:02] VITALS: RESP 16
[2023-05-13 06:00] VITALS: BP 124/75; PULSE 80; RESP 13; TEMP 37.1; O2SAT 97
[2023-05-13] MEDS: terbinafine 1% Cream 15 gm 1 APPLIC TOPICAL (07:38)
[2023-05-13] MEDS: simethicone 80 mg Chew PO (07:38)
[2023-05-13] MEDS: ARIPiprazole 10 mg Tablet PO (07:38)
[2023-05-13] MEDS: nicotine 2 mg Gum BUCCAL (09:44)
[2023-05-13] MEDS: hyDROXYzine 25 mg Capsule 50 MG PO (11:45)
--- NOTE | 2023-05-13 11:46 | PC.NURSE ---
prn vistaril 50 mg given po per pt c/o stated anxiety
[2023-05-13 14:00] VITALS: BP 102/54; PULSE 80; RESP 16; TEMP 36.8; O2SAT 98
--- NOTE | 2023-05-13 14:15 | P.NPUPN_ITS ---
Subjective NPU Subjective: Patient presented today reporting that she is not going to go to the hearing. She continues to report that she does not want to have a total 1 day hold. We discussed needing to see some improvement in her psychotic thinking for discharge that happened but that it likely would not be 21 days. She was requesting that this administrative underwriter tell her when the discharge will happen and we continue to discuss that it was not something that is predictable but that if she continues to take her medications that he is in the best chance for a faster discharge. Mental Status Exam MSE Comments: This is a well-nourished well-developed white female in hospital scrubs with improving grooming and no eye contact. Condition no abnormal movements except for resolving psychomotor agitation. More cooperative with exam in mild distress. Speech was increased rate and volume. Mood described as fine, affect less irritable. Thought process more organized. Thought content: Patient denied suicidal or homicidal ideation, there were no delusions reported but clear paranoia noted, she denied auditory or visual hallucinations were reported things that seem to represent auditory and visual hallucinations. Attention and concentration as well as memory were impaired but none were formally tested. She is alert and oriented to person and place. Insight, judgment and impulse control were impaired. Vitals/I&O/Wt Last Vital Signs Temp 98.3 F 05/13/23 14:00 Pulse 80 05/13/23 14:00 Resp 16 05/13/23 14:00 BP 102/54 05/13/23 14:00 Pulse Ox 98 05/13/23 14:00 O2 Del Method Room Air 05/13/23 06:00 Weight last 48 hrs Weight 61.235 kg Data NPU 05/06/23 15:22 05/06/23 15:22 A&P Assessment and plan (1) Drug-induced psychotic disorder: (2) Methamphetamine abuse: (3) Homicidal ideation: (4) Suicidal ideation: (5) Psychosis: (6) Aggression: (7) Withdrawal from methamphetamine: Plan This is a 48-year-old female with a history of chronic methamphetamine use and likely methamphetamine induced psychosis but with psychosis nonetheless who presents subdued and fairly unarousable secondary to as needed medication in the emergency department as well as methamphetamine withdrawal. 1. Started Abilify 10 mg p.o. daily. 2. Continue every 15 minute checks for safety. 3. Encourage individual, group and milieu therapies. 4. Encourage sober living treatment after discharge at the highest level of care to which she is willing to commit. 5. We will attempt to get collateral information given her inability as a historian. Filed 21-day hold paperwork 05/10/2023. 21-day hold hearing today at 1430. Involuntary Hold Information 96 Hour Hold: 96 Hour Involuntary Admission: Yes 96 Hour Hold Ending Date: 05/10/23 96 Hour Hold Ending Time: 14:13 Attestations NPU Medical Necessity Statement*: Inpatient hospitalization is medically necessary and the clinically appropriate intervention at this time. We will initiate medications and make changes as indicated. Likely length of stay 4-6 days Coding Level of Care Code Acute Code for g Fwd Diagnoses Drug-induced psychotic disorder F19.959 Methamphetamine abuse F15.10 Homicidal ideation R45.850 Suicidal ideation R45.851 Psychosis F29 Aggression R46.89 Withdrawal from methamphetamine F15.93
[2023-05-13 20:02] VITALS: RESP 16
[2023-05-14 06:00] VITALS: BP 107/65; PULSE 82; RESP 16; TEMP 36.4; O2SAT 96
[2023-05-14] MEDS: simethicone 80 mg Chew PO ×2 (06:23→17:01)
[2023-05-14] MEDS: nicotine 2 mg Gum BUCCAL ×2 (06:25→16:28)
[2023-05-14] MEDS: terbinafine 1% Cream 15 gm 1 APPLIC TOPICAL ×2 (07:36→17:35)
--- NOTE | 2023-05-14 07:36 | PC.NURSE ---
refused scheduled Abilify, stated she would prefer to take it at night or not at all will alert Dr. Callahan of med refusal
[2023-05-14] MEDS: OLANZapine 5 mg ODT PO (07:59)
--- NOTE | 2023-05-14 11:43 | P.NPUPN_ITS ---
Subjective NPU Subjective: Patient presented today reporting that she is doing fine and continuing to focus on a discharge date as soon as possible. She continues to ask about being discharged the next day or the day after. We verify that in fact she could be discharged on any day and is not required to serve the full 21 days but that we would discharge based on her improvement and increased functioning and not on desire for discharge. She denies any side effects to the medication but continues to have delusional believes about somatic reports of things being placed in the ears when she was younger or things moving around in her body. Mental Status Exam 2 MSE Comments: This is a well-nourished well-developed white female in hospital scrubs with improving grooming and no eye contact. Condition no abnormal movements except for resolving psychomotor agitation. More cooperative with exam in mild distress. Speech was increased rate and volume. Mood described as fine, affect less irritable. Thought process more organized. Thought content: Patient denied suicidal or homicidal ideation, there were no delusions reported but clear paranoia noted, she denied auditory or visual hallucinations were reported things that seem to represent auditory and visual hallucinations. Attention and concentration as well as memory were impaired but none were formally tested. She is alert and oriented to person and place. Insight, judgment and impulse control were impaired. Vitals/I&O/Wt Last Vital Signs Temp 97.5 F L 05/14/23 06:00 Pulse 82 05/14/23 06:00 Resp 16 05/14/23 06:00 BP 107/65 05/14/23 06:00 Pulse Ox 96 05/14/23 06:00 O2 Del Method Room Air 05/13/23 06:00 Data NPU 05/06/23 15:22 05/06/23 15:22 A&P Assessment and plan (1) Drug-induced psychotic disorder: (2) Methamphetamine abuse: (3) Homicidal ideation: (4) Suicidal ideation: (5) Psychosis: (6) Aggression: (7) Withdrawal from methamphetamine: Plan This is a 48-year-old female with a history of chronic methamphetamine use and likely methamphetamine induced psychosis but with psychosis nonetheless who presents subdued and fairly unarousable secondary to as needed medication in the emergency department as well as methamphetamine withdrawal. 1. Started Abilify 10 mg p.o. daily. 2. Continue every 15 minute checks for safety. 3. Encourage individual, group and milieu therapies. 4. Encourage sober living treatment after discharge at the highest level of care to which she is willing to commit. 5. We will attempt to get collateral information given her inability as a historian. Filed 21-day hold paperwork 05/10/2023. 21-day hold hearing 1 07/13/2022 at 1430. 21-day hold was granted. Involuntary Hold Information 96 Hour Hold: 96 Hour Involuntary Admission: Yes 96 Hour Hold Ending Date: 05/10/23 96 Hour Hold Ending Time: 14:13 Attestations NPU Medical Necessity Statement*: Inpatient hospitalization is medically necessary and the clinically appropriate intervention at this time. We will initiate medications and make changes as indicated. Likely length of stay 4-6 days Coding Level of Care Code Acute Code for g Fwd Diagnoses Drug-induced psychotic disorder F19.959 Methamphetamine abuse F15.10 Homicidal ideation R45.850 Suicidal ideation R45.851 Psychosis F29 Aggression R46.89 Withdrawal from methamphetamine F15.93
[2023-05-14 14:00] VITALS: BP 118/80; PULSE 89; RESP 16; O2SAT 99
[2023-05-14 14:30] LABS: HCG Qualitative Urine. Negative (Negative)
[2023-05-14] MEDS: diphenhydrAMINE 50 mg Capsule PO (17:37)
[2023-05-14 21:07] VITALS: BP 104/69; PULSE 76; RESP 18; TEMP 36.6; O2SAT 98
[2023-05-15] MEDS: nicotine 2 mg Gum BUCCAL (04:53)
[2023-05-15 06:00] VITALS: RESP 16
--- NOTE | 2023-05-15 08:18 | PC.NURSE ---
patient fixated on the idea that she has a straight pin in her neck and that she needs her neck scanned and her head scanned because of a lump she has had for four years. Patient denies SI, HI, AVH, depression, and anxiety.
[2023-05-15] MEDS: ARIPiprazole 10 mg Tablet PO (08:19)
[2023-05-15] MEDS: hyDROXYzine 25 mg Capsule 50 MG PO (08:21)
[2023-05-15] MEDS: terbinafine 1% Cream 15 gm 1 APPLIC TOPICAL ×2 (08:21→17:43)
--- NOTE | 2023-05-15 10:57 | W.PM.NPUPNS ---
Subjective NPU Subjective: Patient presented today reporting that she is feeling better and staff reporting slow but notable improvements. Patient reports talking to daughter about the [facility] program. We discussed knowing about this program and thinking it was a good idea. She reports children are going to [facility] together and help pay for the monthly fee of the program which when last checked was a year program. She denied any side effects of the medication. She did float the idea of going to the core program but discharging soon irregardless of availability. Mental Status Exam MSE Comments: This is a well-nourished well-developed white female in hospital scrubs with improving grooming and no eye contact. Condition no abnormal movements except for resolving psychomotor agitation. More cooperative with exam in mild distress. Speech was increased rate and volume. Mood described as fine, affect less irritable. Thought process more organized. Thought content: Patient denied suicidal or homicidal ideation, there were no delusions reported but clear paranoia noted, she denied auditory or visual hallucinations were reported things that seem to represent auditory and visual hallucinations. Attention and concentration as well as memory were impaired but none were formally tested. She is alert and oriented to person and place. Insight, judgment and impulse control were impaired. Vitals/I&O/Wt Last Vital Signs Temp 97.8 F 05/14/23 21:07 Pulse 76 05/14/23 21:07 Resp 16 05/15/23 06:00 BP 104/69 05/14/23 21:07 Pulse Ox 98 05/14/23 21:07 O2 Del Method Room Air 05/14/23 21:07 Data NPU 05/06/23 15:22 05/06/23 15:22 A&P Assessment and plan (1) Drug-induced psychotic disorder: (2) Methamphetamine abuse: (3) Homicidal ideation: (4) Suicidal ideation: (5) Psychosis: (6) Aggression: (7) Withdrawal from methamphetamine: Plan This is a 48-year-old female with a history of chronic methamphetamine use and likely methamphetamine induced psychosis but with psychosis nonetheless who presents subdued and fairly unarousable secondary to as needed medication in the emergency department as well as methamphetamine withdrawal. 1. Started Abilify 10 mg p.o. daily. Consider increase to 15 mg. 2. Continue every 15 minute checks for safety. 3. Encourage individual, group and milieu therapies. 4. Encourage sober living treatment after discharge at the highest level of care to which she is willing to commit. 5. We will attempt to get collateral information given her inability as a historian. Filed 21-day hold paperwork 05/10/2023. 21-day hold hearing 05/13/2023 at 1430. 21-day hold was granted. Involuntary Hold Information 96 Hour Hold: 96 Hour Involuntary Admission: Yes 96 Hour Hold Ending Date: 05/10/23 96 Hour Hold Ending Time: 14:13 Attestations NPU Medical Necessity Statement*: Inpatient hospitalization is medically necessary and the clinically appropriate intervention at this time. We will initiate medications and make changes as indicated. Likely length of stay 4-6 days Coding Level of Care Code Acute Code for [facility] Fwd Diagnoses Drug-induced psychotic disorder F19.959 Methamphetamine abuse F15.10 Homicidal ideation R45.850 Suicidal ideation R45.851 Psychosis F29 Aggression R46.89 Withdrawal from methamphetamine F15.93
[2023-05-15] MEDS: nicotine 4 mg lozenge MUCOUS MEM (12:43)
[2023-05-15 14:00] VITALS: BP 107/70; PULSE 96; RESP 17; TEMP 36.9; O2SAT 98
[2023-05-15] MEDS: simethicone 80 mg Chew PO ×2 (14:48→17:43)
[2023-05-15 21:29] VITALS: RESP 16
[2023-05-16 06:00] VITALS: BP 110/74; PULSE 74; RESP 16; TEMP 36.6; O2SAT 98
[2023-05-16] MEDS: nicotine 4 mg lozenge MUCOUS MEM ×3 (06:33→18:55)
[2023-05-16] MEDS: ARIPiprazole 10 mg Tablet PO (07:43)
[2023-05-16] MEDS: terbinafine 1% Cream 15 gm 1 APPLIC TOPICAL ×2 (07:45→17:40)
--- NOTE | 2023-05-16 09:50 | PC.NURSE ---
PT CURRENTLY DENIES SI/HI/AH/VH. PT STATED TO THIS NURSE THIS MORNING I HAVE A QUESTION DO PEOPLE WHEN THERE HEART STOPS BECAUSE MY HEART STOPPED JUST A MINUTE AGO AND I WANTED YOU TO LISTEN TO IT. CAUSE IM NOT . PT HEART IS STILLING BEATING. PT WILLINGLY TOOK HER MEDICATIONS. PT CURRENT NEEDS ARE MET AT THIS TIME.
[2023-05-16 13:51] VITALS: BP 133/84; PULSE 89; RESP 17; TEMP 36.9; O2SAT 98
[2023-05-16] MEDS: hyDROXYzine 25 mg Capsule 50 MG PO (14:38)
--- NOTE | 2023-05-16 18:41 | P.NPUPN_ITS ---
Subjective NPU Subjective: Patient presented today reporting that she was excited about the [facility] program but is clearly imagining a gap. Prior to going to the program and we discussed concerns that that would not necessarily be a goal if their availability did not cause 1. We discussed talking to the program first to find out what their situation is. Mental Status Exam MSE Comments: This is a well-nourished well-developed white female in hospital scrubs with improving grooming and no eye contact. Condition no abnormal movements except for resolving psychomotor agitation. More cooperative with exam in mild di stress. Speech was increased rate and volume. Mood described as fine, affect less irritable. Thought process more organized. Thought content: Patient denied suicidal or homicidal ideation, there were no delusions reported but clear paranoia noted, she denied auditory or visual hallucinations were reported things that seem to represent auditory and visual hallucinations. Attention and concentration as well as memory were impaired but none were formally tested. She is alert and oriented to person and place. Insight, judgment and impulse control were impaired. Vitals/I&O/Wt Last Vital Signs Temp 98.3 F 05/16/23 20:44 Pulse 74 05/16/23 20:44 Resp 16 05/16/23 20:44 BP 115/67 05/16/23 20:44 Pulse Ox 96 05/16/23 20:44 O2 Del Method Room Air 05/16/23 20:44 Data NPU 05/06/23 15:22 05/06/23 15:22 A&P Assessment and plan (1) Drug-induced psychotic disorder: (2) Methamphetamine abuse: (3) Homicidal ideation: (4) Suicidal ideation: (5) Psychosis: (6) Aggression: (7) Withdrawal from methamphetamine: Plan This is a 48-year-old female with a history of chronic methamphetamine use and likely methamphetamine induced psychosis but with psychosis nonetheless who presents subdued and fairly unarousable secondary to as needed medication in the emergency department as well as methamphetamine withdrawal. 1. Started Abilify 10 mg p.o. daily. Consider increase to 15 mg. 2. Continue every 15 minute checks for safety. 3. Encourage individual, group and milieu therapies. 4. Encourage sober living treatment after discharge at the highest level of care to which she is willing to commit. 5. We will attempt to get collateral information given her inability as a historian. Filed 21-day hold paperwork 05/10/2023. 21-day hold hearing 05/13/2023 at 1430. 21-day hold was granted. Involuntary Hold Information 96 Hour Hold: 96 Hour Involuntary Admission: Yes 96 Hour Hold Ending Date: 05/10/23 96 Hour Hold Ending Time: 14:13 Attestations NPU Medical Necessity Statement*: Inpatient hospitalization is medically necessary and the clinically appropriate intervention at this time. We will initiate medications and make changes as indicated. Likely length of stay 4-6 days Coding Level of Care Code Acute Code for Chg Fwd Diagnoses Drug-induced psychotic disorder F19.959 Methamphetamine abuse F15.10 Homicidal ideation R45.850 Suicidal ideation R45.851 Psychosis F29 Aggression R46.89 Withdrawal from methamphetamine F15.93
[2023-05-16] MEDS: diphenhydrAMINE 50 mg Capsule PO (18:55)
[2023-05-16 20:44] VITALS: BP 115/67; PULSE 74; RESP 16; TEMP 36.8; O2SAT 96
[2023-05-17] MEDS: diphenhydrAMINE 50 mg Capsule PO (01:17)
[2023-05-17] MEDS: nicotine 2 mg Gum BUCCAL ×2 (02:14→12:52)
[2023-05-17 06:00] VITALS: BP 129/84; PULSE 84; RESP 18; O2SAT 98
[2023-05-17] MEDS: nicotine 4 mg lozenge MUCOUS MEM ×2 (07:28→16:31)
--- NOTE | 2023-05-17 07:54 | PC.NURSE ---
Patient approached nurses' station this morning and stated she had been watching the [employer] channel and it had an episode on spiders. She said she now believes she possibly has a spider in her back that needs to be looked at and believes she may need to be seen in the ER. Patient also stated, I might even need air evac. I don't know. Patient was reassured that she did not have a spider in her back, but appeared unconvinced.
[2023-05-17] MEDS: terbinafine 1% Cream 15 gm 1 APPLIC TOPICAL ×2 (08:51→18:58)
[2023-05-17] MEDS: ARIPiprazole Maintena 400 MG IM (08:52)
--- NOTE | 2023-05-17 08:53 | PC.NURSE ---
Patient administered abilify 400mg IM in left deltoid. Tolerated well.
--- NOTE | 2023-05-17 09:46 | PC.NURSE ---
Patient believes there is a snake under her bed. Patient was reassured by staff that there was not a snake under her bed. She did say she felt the abilify injection she got earlier was working and that she felt really good. She stated, I'm reading better now.
--- NOTE | 2023-05-17 13:09 | W.PM.NPUPNS ---
Subjective NPU Subjective: Patient presented today reporting that she is doing okay. Conversation however revealed significant psychotic content with belief of animals in her body and other somatic complaints including that her hand is growing. She continues to believe that she has devices planted in her ears to allow her to receive the auditory hallucinations she appears to be having. She reports that everything is fine and she should be able to discharge but as she gets more comfortable she seems to be revealing more more significant psychotic content. We discussed the risks, benefits and alternatives of increasing her Abilify and she understood and agreed to proceed as is documented in this note. Mental Status Exam MSE Comments: This is a well-nourished well-developed white female in hospital scrubs with improving grooming and no eye contact. No abnormal movements except for resolving psychomotor agitation with intermittent bouts of significant agitation. More cooperative with exam in mild to extreme distress intermittently as she tries to argue that nothing is wrong with her and she is not psychotic. Speech was increased rate and volume. Mood described as fine, affect less irritable baseline. Thought process more organized. Thought content: Patient denied suicidal or homicidal ideation, there were no delusions reported but clear paranoia as well as somatic and bizarre delusions noted, she denied auditory or visual hallucinations were reported things that seem to represent auditory and visual hallucinations. Attention and concentration as well as memory were impaired but none were formally tested. She is alert and oriented to person and place. Insight, judgment and impulse control were impaired. Vitals/I&O/Wt Last Vital Signs Temp 98.3 F 05/16/23 20:44 Pulse 84 05/17/23 06:00 Resp 18 05/17/23 06:00 BP 129/84 05/17/23 06:00 Pulse Ox 98 05/17/23 06:00 O2 Del Method Room Air 05/17/23 06:00 Data NPU 05/06/23 15:22 05/06/23 15:22 A&P Assessment and plan (1) Drug-induced psychotic disorder: (2) Methamphetamine abuse: (3) Homicidal ideation: (4) Suicidal ideation: (5) Psychosis: (6) Aggression: (7) Withdrawal from methamphetamine: Plan This is a 48-year-old female with a history of chronic methamphetamine use and likely methamphetamine induced psychosis but with psychosis nonetheless who presents subdued and fairly unarousable secondary to as needed medication in the emergency department as well as methamphetamine withdrawal. 1. Started Abilify 10 mg p.o. daily. Increase to 15 mg. 2. Continue every 15 minute checks for safety. 3. Encourage individual, group and milieu therapies. 4. Encourage sober living treatment after discharge at the highest level of care to which she is willing to commit. 5. We will attempt to get collateral information given her inability as a historian. Filed 21-day hold paperwork 05/10/2023. 21-day hold hearing 05/13/2023 at 1430. 21-day hold was granted. Involuntary Hold Information 96 Hour Hold: 96 Hour Involuntary Admission: Yes 96 Hour Hold Ending Date: 05/10/23 96 Hour Hold Ending Time: 14:13 Attestations NPU Medical Necessity Statement*: Inpatient hospitalization is medically necessary and the clinically appropriate intervention at this time. We will initiate medications and make changes as indicated. Likely length of stay 4-6 days Coding Level of Care Code Acute Code for [facility] Fwd Diagnoses Drug-induced psychotic disorder F19.959 Methamphetamine abuse F15.10 Homicidal ideation R45.850 Suicidal ideation R45.851 Psychosis F29 Aggression R46.89 Withdrawal from methamphetamine F15.93
[2023-05-17] MEDS: hyDROXYzine 25 mg Capsule 50 MG PO (13:57)
[2023-05-17 14:00] VITALS: BP 101/59; PULSE 104; RESP 16; TEMP 528.3; TEMP 983; O2SAT 100
[2023-05-17] MEDS: haloperidol 5 mg Tablet PO (18:56)
[2023-05-17 20:09] VITALS: BP 116/81; PULSE 80; RESP 18; TEMP 37.1; O2SAT 96
--- NOTE | 2023-05-18 06:59 | PC.NURSE ---
pt ref resp 16
--- NOTE | 2023-05-18 07:55 | W.PM.NPUPNS ---
Subjective NPU Subjective: Patient presented today reporting that she is doing okay. She continues to feel she does not need to be here but is excepting that Dr. Kyle will be here tomorrow and that she will get the second opinion she is hoping for. We discussed that he will have my notes but that he will make an independent decision about what he thinks about her condition. She denies any side effects to the Abilify. Though she was stating the previous day that it was making her face feel funny. Mental Status Exam MSE Comments: This is a well-nourished well-developed white female in hospital scrubs with improving grooming and no eye contact. No abnormal movements except for resolving psychomotor agitation. More cooperative with exam in mild distress intermittently. Speech was more normal rate and volume. Mood described as fine, affect less irritable baseline. Thought process more organized. Thought content: Patient denied suicidal or homicidal ideation, there were no delusions reported but clear paranoia as well as somatic and bizarre delusions noted, she denied auditory or visual hallucinations were reported things that seem to represent auditory and visual hallucinations. Attention and concentration as well as memory were impaired but none were formally tested. She is alert and oriented to person and place. Insight, judgment and impulse control were impaired. Vitals/I&O/Wt Last Vital Signs Temp 98.2 F 05/18/23 19:50 Pulse 81 05/18/23 19:50 Resp 16 05/18/23 19:50 BP 107/70 05/18/23 19:50 Pulse Ox 94 05/18/23 19:50 O2 Del Method Room Air 05/18/23 19:50 Weight last 48 hrs Weight 62.596 kg Data NPU 05/06/23 15:22 05/06/23 15:22 A&P Assessment and plan (1) Drug-induced psychotic disorder: (2) Methamphetamine abuse: (3) Homicidal ideation: (4) Suicidal ideation: (5) Psychosis: (6) Aggression: (7) Withdrawal from methamphetamine: Plan This is a 48-year-old female with a history of chronic methamphetamine use and likely methamphetamine induced psychosis but with psychosis nonetheless who presents subdued and fairly unarousable secondary to as needed medication in the emergency department as well as methamphetamine withdrawal. 1. Started Abilify 10 mg p.o. daily. Increased to 15 mg. 2. Continue every 15 minute checks for safety. 3. Encourage individual, group and milieu therapies. 4. Encourage sober living treatment after discharge at the highest level of care to which she is willing to commit. 5. We will attempt to get collateral information given her inability as a historian. Filed 21-day hold paperwork 05/10/2023. 21-day hold hearing 05/13/2023 at 1430. 21-day hold was granted. Involuntary Hold Information 96 Hour Hold: 96 Hour Involuntary Admission: Yes 96 Hour Hold Ending Date: 05/10/23 96 Hour Hold Ending Time: 14:13 Attestations NPU Medical Necessity Statement*: Inpatient hospitalization is medically necessary and the clinically appropriate intervention at this time. We will initiate medications and make changes as indicated. Likely length of stay 4-6 days Coding Level of Care Code Acute Code for g Fwd Diagnoses Drug-induced psychotic disorder F19.959 Methamphetamine abuse F15.10 Homicidal ideation R45.850 Suicidal ideation R45.851 Psychosis F29 Aggression R46.89 Withdrawal from methamphetamine F15.93
[2023-05-18] MEDS: ARIPiprazole 10 mg Tablet 15 MG PO (08:54)
[2023-05-18] MEDS: terbinafine 1% Cream 15 gm 1 APPLIC TOPICAL ×2 (08:55→17:46)
[2023-05-18] MEDS: hyDROXYzine 25 mg Capsule 50 MG PO ×2 (09:00→17:01)
[2023-05-18] MEDS: acetaminophen 325 mg Tablet 650 MG PO (09:07)
[2023-05-18] MEDS: nicotine 2 mg Gum BUCCAL ×2 (09:07→15:29)
[2023-05-18] MEDS: nicotine 4 mg lozenge MUCOUS MEM (11:16)
[2023-05-18 12:36] VITALS: BP 113/73; PULSE 69; RESP 15; TEMP 36.5; O2SAT 95
[2023-05-18 19:50] VITALS: BP 107/70; PULSE 81; RESP 16; TEMP 36.8; O2SAT 94
[2023-05-19 06:00] VITALS: BP 110/75; PULSE 100; RESP 19; TEMP 36.7; O2SAT 96
[2023-05-19] MEDS: ARIPiprazole 10 mg Tablet 15 MG PO (08:13)
[2023-05-19] MEDS: terbinafine 1% Cream 15 gm 1 APPLIC TOPICAL ×2 (08:15→18:02)
[2023-05-19] MEDS: nicotine 2 mg Gum BUCCAL ×2 (08:15→15:18)
--- NOTE | 2023-05-19 08:53 | PC.NURSE ---
Denies si/hi and avh. Patient states her athlete's foot on her left foot is getting much better, but did make a strange comment that she believes there's a worm that goes with this athlete's foot that has wrapped around her toe. Denies anxiety and depression.
[2023-05-19] MEDS: nicotine 4 mg lozenge MUCOUS MEM (13:00)
[2023-05-19 13:35] VITALS: BP 113/68; PULSE 90; RESP 18; TEMP 37.1; O2SAT 99
--- NOTE | 2023-05-19 15:48 | P.NPUPN_ITS ---
Subjective NPU Subjective: Patient is a 48-year-old white female with likely substance-induced psychosis particularly methamphetamine use. She continued to appear vague and less than revealing regarding why she had been hospitalized. She had stated that she had been living with her parents. She had focused today on the idea that she believes that others around her including her previous physician here had been b earing crutches and that she had been picked up by the police for no reason at all. Patient appeared to isolate herself on the milieu. She reported no side effects from her medication. She stated that she did not understand why she needed to be on medication and had minimized her use of methamphetamine Mental Status Exam MSE Comments: This is a well-nourished well-developed white female in hospital scrubs with poor grooming and no eye contact. No abnormal movements except for mild psychomotor retardation. She was cooperative with her exam today. Speech was more normal rate and volume. Mood described as okay. Her affect was odd and blunted. Thought process was linear but superficial. Thought content: Patient denied suicidal or homicidal ideation, there were no delusions reported but clear evidence of paranoia with everyone bearing grudges. Attention and concentration as well as memory were impaired but none were formally tested. She is alert and oriented to person and place. Insight, judgment and impulse control were impaired. Vitals/I&O/Wt Last Vital Signs Temp 98.8 F 05/19/23 13:35 Pulse 90 05/19/23 13:35 Resp 18 05/19/23 13:35 BP 113/68 05/19/23 13:35 Pulse Ox 99 05/19/23 13:35 O2 Del Method Room Air 05/19/23 06:00 Weight last 48 hrs Weight 62.596 kg Weight 62.596 kg Data NPU 05/06/23 15:22 05/06/23 15:22 A&P Assessment and plan (1) Drug-induced psychotic disorder: (2) Methamphetamine abuse: (3) Homicidal ideation: (4) Suicidal ideation: (5) Psychosis: (6) Aggression: (7) Withdrawal from methamphetamine: Plan This is a 48-year-old female with a history of chronic methamphetamine use and likely methamphetamine induced psychosis but with psychosis nonetheless who presents subdued and fairly unarousable secondary to as needed medication in the emergency department as well as methamphetamine withdrawal. 1. Abilify 15mg daily. 2. Continue every 15 minute checks for safety. 3. Encourage individual, group and milieu therapies. 4. Encourage sober living treatment after discharge at the highest level of care to which she is willing to commit. 5. Patient remains on 21 day hold. Involuntary Hold Information 96 Hour Hold: 96 Hour Involuntary Admission: Yes 96 Hour Hold Ending Date: 05/10/23 96 Hour Hold Ending Time: 14:13 Attestations NPU Medical Necessity Statement*: Inpatient hospitalization is medically necessary and the clinically appropriate intervention at this time. We will initiate medications and make changes as indicated. Her likely length of stay is 4-6 days. Coding Level of Care Code Acute Code for [facility] Fwd Diagnoses Drug-induced psychotic disorder F19.959 Methamphetamine abuse F15.10 Homicidal ideation R45.850 Suicidal ideation R45.851 Psychosis F29 Aggression R46.89 Withdrawal from methamphetamine F15.93
[2023-05-19] MEDS: diphenhydrAMINE 50 mg Capsule PO (19:49)
[2023-05-19 20:10] VITALS: BP 107/70; PULSE 86; RESP 16; TEMP 37; O2SAT 96
[2023-05-20] MEDS: nicotine 2 mg Gum BUCCAL ×2 (03:43→14:10)
[2023-05-20 06:00] VITALS: BP 128/89; PULSE 88; RESP 18; TEMP 36.9; O2SAT 97
[2023-05-20] MEDS: nicotine 4 mg lozenge MUCOUS MEM ×2 (07:38→16:21)
[2023-05-20] MEDS: ARIPiprazole 10 mg Tablet 15 MG PO (08:16)
[2023-05-20] MEDS: terbinafine 1% Cream 15 gm 1 APPLIC TOPICAL ×2 (08:55→18:06)
--- NOTE | 2023-05-20 12:22 | ECG_ITS ---
[facility] Test Date: 2023-05-20 Pat Name: Danielle Weber Department: Room: 154 Gender: Female President And Chief Operating Officer: : 1975 Requested By: Dick Kyle Order Number: [id number] Amaya MD: Gurpreet Ventura M.D. Measurements Intervals [place] Rate: 77 P: -14 NM: 138 QRS: 58 QRSD: 82 T: 67 QT: 380 QTc: 431 Interpretive Statements SINUS RHYTHM NONSPECIFIC T-WAVE ABNORMALITY Borderline ECG Electronically Signed On 05-20-2023 14:38:20 MICROELECTRONICS TECHNICIAN by Gurpreet Ventura M.D. [id number]
[2023-05-20] MEDS: ALPRAZolam 0.5 mg Tablet 1 MG PO (12:37)
[2023-05-20 12:39] VITALS: BP 134/79; PULSE 76; RESP 18; O2SAT 97
--- NOTE | 2023-05-20 12:40 | PC.NURSE ---
PT CAME TO THE NURSES STATION AND TOLD THIS NURSE THAT SHE WAS HAVING PAIN IN HER CHEST RATING IT A 9/10 ON A SCALE OF 0-10 WHERE 0 MEANS NONE AND 10 IS THE WORST PAIN.. PT POINTED TO THE MIDDLE OF HER CHEST. THIS NURSE LISTENED TO THE PT. PT VITALS WERE RETRIEVED AND WERE BP: 134/79 PULSE:76 SPO2:97% ON ROOM AIR. PHYSICIAN NOTIFIED A TROPONIN AND STAT EKG WAS ORDERED. DURING BLOOD DRAW PT STATED THAT SHE THINKS SOMETHING IN MOVING IN HER CHEST AND IN HER VEINS. WHILE PT WAS RECEIVING HER EKG PT REPEATED THIS INFORMATION. PHYSICIAN ORDERED 1 MG OF XANAX TO BE GIVEN A ONE TIME ORDER NOW. PT STATES THAT HER PAIN IS NOW IN THE RIGHT SIDE OF HER CHEST AND SHE BELIEVES IT IS A CRAWLING TUMOR
[2023-05-20 12:44] LABS: Troponin T (5th) Once < 6 ng/L (0-10)
[2023-05-20 14:00] VITALS: BP 110/75; PULSE 86; RESP 16; TEMP 36.6; O2SAT 95
[2023-05-20 14:24] VITALS: PULSE 77
[2023-05-20] MEDS: hyDROXYzine 25 mg Capsule 50 MG PO (18:22)
--- NOTE | 2023-05-20 19:22 | W.PM.NPUPNS ---
Subjective NPU Subjective: Patient is a 48-year-old white female with likely substance-induced psychosis particularly methamphetamine use. The patient had reported that her methamphetamine use had been a problem but stated that she struggled to remain sober in her living environment. She continued to appear at times distracted by her thoughts. She reported that she still felt suspicious of other people's intentions and stated that she was uncertain as to why she needed to take medication. She had required prompting for completing activities of daily living including self-care. Patient endorsed chest pain that appeared relief with 1mg of xanax acutely. Mental Status Exam MSE Comments: This is a well-nourished well-developed white female in hospital scrubs with poor grooming and no eye contact. No abnormal movements except for mild psychomotor retardation. She was somewhat guarded today on exam. Speech was more normal rate and volume. Mood described as fine. Her affect was subdued. Thought process was linear but superficial. Thought content: Patient denied suicidal or homicidal ideation, there were no delusions reported but clear evidence of paranoia. Attention and concentration as well as memory were impaired but none were formally tested. She is alert and oriented to person and place. Insight, judgment and impulse control were impaired. Vitals/I&O/Wt Last Vital Signs Temp 98 F 05/20/23 14:00 Pulse 77 05/20/23 14:24 Resp 16 05/20/23 14:00 BP 110/75 05/20/23 14:00 Pulse Ox 95 05/20/23 14:00 O2 Del Method Room Air 05/20/23 14:00 Weight last 48 hrs Weight 62.596 kg Weight 62.596 kg Data NPU 05/06/23 15:22 05/06/23 15:22 A&P Assessment and plan (1) Drug-induced psychotic disorder: (2) Methamphetamine abuse: (3) Homicidal ideation: (4) Suicidal ideation: (5) Psychosis: (6) Aggression: (7) Withdrawal from methamphetamine: Plan This is a 48-year-old female with a history of chronic methamphetamine use and likely methamphetamine induced psychosis but with psychosis nonetheless who presents subdued and fairly unarousable secondary to as needed medication in the emergency department as well as methamphetamine withdrawal. 1. Increase abilify to 20mg daily. 2. Continue every 15 minute checks for safety. 3. Encourage individual, group and milieu therapies. 4. Encourage sober living treatment after discharge at the highest level of care to which she is willing to commit. 5. Patient remains on 21 day hold. Involuntary Hold Information 96 Hour Hold: 96 Hour Involuntary Admission: Yes 96 Hour Hold Ending Date: 05/10/23 96 Hour Hold Ending Time: 14:13 Attestations NPU Medical Necessity Statement*: Inpatient hospitalization is medically necessary and the clinically appropriate intervention at this time. We will initiate medications and make changes as indicated. Her likely length of stay is 4-6 days. Coding Level of Care Code Acute Code for [facility] Fwd Diagnoses Drug-induced psychotic disorder F19.959 Methamphetamine abuse F15.10 Homicidal ideation R45.850 Suicidal ideation R45.851 Psychosis F29 Aggression R46.89 Withdrawal from methamphetamine F15.93
[2023-05-20 20:15] VITALS: BP 106/65; PULSE 95; RESP 16; TEMP 36.9; O2SAT 96
--- NOTE | 2023-05-20 20:50 | PC.NURSE ---
IN BED RESTING AROUSES TO VOICE. PT DENIES SI/HI AND AVH AT THIS TIME. RATES ANXIETY 2/10 AND DEPRESSION 0/10. PT STATES SHE JUST WANTS TO SLEEP. PT WAS ENCOURAGED TO REST. ALL QUESTIONS ANSWERED AND SUPPORT VOICED.
[2023-05-21 06:00] VITALS: BP 111/76; PULSE 97; RESP 18; TEMP 37; O2SAT 97
[2023-05-21] MEDS: ibuprofen 600 mg Tablet PO (06:14)
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
[2023-05-21] MEDS: nicotine 2 mg Gum BUCCAL ×2 (06:27→16:39)
[2023-05-21] MEDS: ARIPiprazole 10 mg Tablet 20 MG PO (10:16)
[2023-05-21 14:00] VITALS: BP 128/89; PULSE 99; RESP 20; TEMP 36.6; O2SAT 96
[2023-05-21] MEDS: nicotine 4 mg lozenge MUCOUS MEM (14:29)
[2023-05-21] MEDS: OLANZapine 5 mg ODT PO (14:42)
[2023-05-21] MEDS: hyDROXYzine 25 mg Capsule 50 MG PO (16:39)
--- NOTE | 2023-05-21 18:17 | W.PM.NPUPNS ---
Subjective NPU Subjective: Patient is a 48-year-old white female with likely substance-induced psychosis particularly methamphetamine use. Patient had continued to report multiple somatic complaints. She had reported that she felt like spiders were inside of her body. She had stated frequently having feelings as if something had contaminated her. The patient reported no sleep disturbance. She had appeared to be pacing the hallway throughout much of the the day. Patient reported no side effects from her medication. She had admitted to having significant problems with managing the use of methamphetamines as she stated that others in the household were currently using. She was agreeable to considering a place such as living with her daughter on her property away from her current living situation. She had reported that she had not remembered the details of what had brought her into the hospital. She had stated that it was possible that her use of methamphetamine had caused her to behave a certain way that it landed her here in the psychiatric facility in [place]. Mental Status Exam MSE Comments: This is a well-nourished well-developed white female in hospital scrubs with poor grooming and no eye contact. No abnormal movements except for mild psychomotor retardation. She was somewhat guarded today on exam. Speech was more normal rate and volume. Mood described as fine. Her affect remained odd Thought process was linear but superficial. Thought content: Patient denied suicidal or homicidal ideation, there were parasitic delusions of contamination noted. Attention and concentration as well as memory were impaired but none were formally tested. She is alert and oriented to person and place. Insight, judgment and impulse control were impaired. Vitals/I&O/Wt Last Vital Signs Temp 97.9 F 05/21/23 14:00 Pulse 99 05/21/23 14:00 Resp 20 H 05/21/23 14:00 BP 128/89 05/21/23 14:00 Pulse Ox 96 05/21/23 14:00 O2 Del Method Room Air 05/21/23 06:00 Data NPU 05/06/23 15:22 05/06/23 15:22 A&P Assessment and plan (1) Drug-induced psychotic disorder: (2) Methamphetamine abuse: (3) Homicidal ideation: (4) Suicidal ideation: (5) Psychosis: (6) Aggression: (7) Withdrawal from methamphetamine: Plan This is a 48-year-old female with a history of chronic methamphetamine use and likely methamphetamine induced psychosis but with psychosis nonetheless who presents subdued and fairly unarousable secondary to as needed medication in the emergency department as well as methamphetamine withdrawal. 1. Continue abilify 20mg daily. 2. Continue every 15 minute checks for safety. 3. Encourage individual, group and milieu therapies. 4. Encourage sober living treatment after discharge at the highest level of care to which she is willing to commit. 5. Patient remains on 21 day hold. Involuntary Hold Information 96 Hour Hold: 96 Hour Involuntary Admission: Yes 96 Hour Hold Ending Date: 05/10/23 96 Hour Hold Ending Time: 14:13 Attestations NPU Medical Necessity Statement*: Inpatient hospitalization is medically necessary and the clinically appropriate intervention at this time. We will initiate medications and make changes as indicated. Her likely length of stay is 4-6 days. Coding Level of Care Code Acute Code for g Fwd Diagnoses Drug-induced psychotic disorder F19.959 Methamphetamine abuse F15.10 Homicidal ideation R45.850 Suicidal ideation R45.851 Psychosis F29 Aggression R46.89 Withdrawal from methamphetamine F15.93
[2023-05-21 19:30] LABS: Glucose Point of Care 128 mg/dL (70-110)
[2023-05-21 20:51] VITALS: BP 107/74; PULSE 88; RESP 18; TEMP 36.3; O2SAT 98
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
[2023-05-22 06:00] VITALS: BP 112/74; PULSE 71; RESP 18; O2SAT 96
[2023-05-22] MEDS: nicotine 4 mg lozenge MUCOUS MEM ×2 (06:39→10:56)
[2023-05-22] MEDS: terbinafine 1% Cream 15 gm 1 APPLIC TOPICAL ×3 (08:11→20:30)
[2023-05-22] MEDS: ARIPiprazole 10 mg Tablet 20 MG PO (08:11)
[2023-05-22] MEDS: simethicone 80 mg Chew PO ×2 (08:13→16:53)
[2023-05-22] MEDS: nicotine 2 mg Gum BUCCAL ×2 (09:19→13:09)
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
[2023-05-22 14:00] VITALS: BP 97/61; PULSE 102; RESP 20; TEMP 37.1; O2SAT 96
[2023-05-22] MEDS: diphenhydrAMINE 50 mg Capsule PO (17:22)
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
[2023-05-22] MEDS: trazodone 50 mg Tablet PO (20:30)
[2023-05-22 20:34] VITALS: BP 115/63; PULSE 85; RESP 20; TEMP 36.9; O2SAT 99
[2023-05-23] MEDS: nicotine 4 mg lozenge MUCOUS MEM (04:53)
[2023-05-23 06:00] VITALS: BP 113/77; PULSE 102; RESP 17; O2SAT 96
--- NOTE | 2023-05-23 08:31 | PC.NURSE ---
During morning assessment, patient denies SI, HI, AVH, depression, and anxiety. Patient appears to be in good spirits.
[2023-05-23] MEDS: nicotine 2 mg Gum BUCCAL (08:49)
[2023-05-23] MEDS: ARIPiprazole 10 mg Tablet 20 MG PO (08:49)
[2023-05-23 09:04] VITALS: BP 113/77; PULSE 102; RESP 17; O2SAT 96
[2023-05-23] MEDS: guaiFENesin-dextromethorphan UDC 10 mL PO (10:50)
--- NOTE | 2023-05-23 11:02 | W.PM.NPUDCS ---
Diagnoses at Discharge Discharge Diagnosis (1) Drug-induced psychotic disorder: Status: Acute (2) Methamphetamine abuse: Status: Acute (3) Homicidal ideation: Status: Acute (4) Suicidal ideation: Status: Acute (5) Psychosis: Status: Acute (6) Aggression: Status: Acute (7) Withdrawal from methamphetamine: Status: Acute Reason for Visit Reason for Visit: 96 hr hold Brief History: History of Present Illness Danielle Weber is a 48 year old female who presented to the emergency department with the following report: Chief Complaint: Psychiatric Symptoms Stated Complaint: 96 hr hold Time Seen by Provider: 05/06/23 14:13 Source: patient, EMS and police Mode of arrival: EMS Limitations: no limitations History of Present Illness: ? 48-year-old female with a history of meth and abuse is brought in by police under 96-hour hold her place she has been psychotic likely meth induced psychosis she has been threatening to kill family members she is placed under 96-hour hold by family members.? Here patient is combative screaming yelling stating she does not trust anyone and everyone is out to get her. ? Associated symptoms: Reports homicidal ideation She was admitted to the neuropsychiatric unit for definitive treatment of those issues.? She had a very active entry into the hospital with significant conflict in the emergency department with eventual four-point restraints for significant period of time and as needed medication.? She was given medication prior to coming to the unit which has rendered her unable to participate in the interview process.? She is barely arousable but presented in clear methamphetamine rage/aggression so she continues to be somnolent most likely secondary to the medication and crashing from her methamphetamine use.? She was unable to give any functional history or assessment of her condition and treatment or any interventions since her October 2021 discharge from our inpatient unit.? An excerpt of that discharge summary is included below given we have no information that we can extract from her.? This personal lines underwriter did see her interacting with staff in the emergency department when they were managing her restraint etc. while down there was another patient however that is the most alert that she has been.? We will attempt to gather information again tomorrow. Per her 11/06/2021 [facility] inpatient psychiatric discharge summary: Discharge Diagnosis (1) Drug-induced psychotic disorder: ? ? ? Status: Acute (2) Methamphetamine abuse: ? ? ? Status: Acute Reason for Visit Reason for Visit: ? SI? Brief History: History of Present Illness Danielle Weber is a 46 year old female Who was admitted to our emergency department with the following report: 38-year-old female was brought in by police under 96-hour hold.? Patient been using meth per family and made threats to cut her head off a machete.? She is fairly adamant here she is not suicidal or homicidal she is a little agitated and seems to be under the influence.? She denies any worsening improving factors is not on any meds at this time. Associated symptoms: Reports auditory hallucinations and depression We have to affidavits which state the following: Hearing voices (the voices have told her to harm herself) Hallucinating Called the police on me for no reason (she wanted them to check on me) Uses methamphetamine Hearing voices, hallucinating Voices told her to cut her head off with a machete ?Threatened to cut boyfriend head off with a machete. She was admitted to the neuropsychiatry unit for definitive treatment of these issues.? She is difficult to interview because she rambles on about her delusions.? Evidently she looked up metal fang on [employer] and now she is being harassed by metal fang.? She hears his voice and she sees his images on windows and in holograms.? she felt threatened by him and was worried that he was going to harass her daughter.? She feels like anybody would have the same concerns.? She called the police to see if they would do a wellness check.? They only called her daughter but it made her and her angry.? Her daughter filled out affidavits and she is on a 96-hour hold.? She said that she started using methamphetamine after her 3 children were born.? About 1998.? At first it was only sporadic but about 6 years ago it became regular use.? She has been hearing voices and seeing things for the last 4 years.? She is not sure if it is the methamphetamine or not but realizes that it could be.? She denies any significant problems in her childhood.? She became and dropped out of high school but got her GED.? Her has been in custodial for about 6 years.? He has about 5 more years.? She has a boyfriend that her knows about and is okay with that situation.? The boyfriend does not talk to her or anybody else.? She alluded to some possible mistreatment but then denied any mistreatment from him.? She lives in a tent in the [facility] Her boyfriend has put a roof over the tent.? Previously she lived in her parent's garage but decided she had overstayed her welcome there.? She has stayed in the [facility] before.? She seems satisfied with that current situation.? She has been on antidepressants before.? She said Wellbutrin made cigarettes taste awful and she stopped using it.? She was on BuSpar when she was 14 years old.? She had gone to the clinic hoping for something that would be in upper and give her an immediate affect.? She did not like the BuSpar and stopped taking it.? She smokes and said that not having a cigarette was about the only thing that could make her cry.? She was really wanting a cigarette this morning. Hospital Course She slowly acclimated to the individual, group and milieu therapies provided.? She was not given any medications other than her home medications for her medical illness.? She tolerated these doses and showed steady improvement during her stay.? ? She was able to contract for safety outside hospital prior to discharge.? During the hospitalization, patient had routine laboratory studies which were within normal limits except for few outliers.? Additionally there was a general medical evaluation which was also within normal limits and revealed no new acute processes. Discharge Summary: At the time of discharge, lethality was denied and psychosis was resolving.? Mood and anxiety were well managed.? Patient endorsed a plan to follow-up with the aftercare recommendations of the treatment team.? She had a plan to go live with her daughter in [place] and start outpatient drug rehabilitation.? If that did not work she agreed to residential drug rehabilitation.? Patient was evaluated and deemed to be absent credible lethality, and had achieved the maximum benefit from an inpatient hospitalization, so was discharged. Hospital Course Hospital Course During the hospitalization, the patient had routine laboratory studies which were within normal limits except for a few outliers.? Additionally, there was a general medical evaluation which was also within normal limits and revealed no new acute processes.? At the time of discharge, lethality was denied and psychosis was resolving.? Mood and anxiety were well managed.? The patient endorsed a plan to avoid all drugs of abuse and follow up with the aftercare recommendations of the treatment team.? The patient was evaluated and deemed to be absent credible lethality and had achieved the maximum benefit from an inpatient hospitalization, and so was discharged. Involuntary Hold Information 96 Hour Hold: 96 Hour Involuntary Admission: Yes 96 Hour Hold Ending Date: 05/10/23 96 Hour Hold Ending Time: 14:13 Mental Status Exam MSE Comments: This is a well-nourished well-developed white female in hospital scrubs with limited grooming, mottled teeth, and fair eye contact. No abnormal involuntary motor movements were appreciated. She was pleasant and cooperative on interview today. Speech was more normal in rate, rhythm, and volume. Mood described as better. Her affect remained flat. Thought process was linear and logical. Thought content: Patient denied suicidal or homicidal ideation, No overt delusions were appreciated. Recent and remote memory were grossly intact. She is alert and oriented times 3. Insight was improved. Her judgment was fair. Her impulse control to fair. Discharge Data Studies Completed and Pending: Laboratory Results WBC 15.52 10^3/uL (3. 29-11.43) H 05/06/23 15:22 RBC 4.31 10^6/uL (3.8 5-5.65) 05/06/23 15:22 Hgb 12.00 g/dL (11.27 -16.99) 05/06/23 15:22 Hct 37.5 % (36-47) 05/06/23 15:22 MCV 87.0 fl (85-98) 05/06/23 15:22 MCH 27.8 pg (27-33) 05/06/23 15:22 MCHC 32.0 g/dL (30-55) 05/06/23 15:22 RDW 15.3 % (12.1-15.1 ) H 05/06/23 15:22 Plt Count 414 10^3/cmm (157 -399) H 05/06/23 15:22 MPV 9.1 fL (7.4-10.4) 05/06/23 15:22 Neut % (Auto) 72.5 % 05/06/23 15:22 Lymph % (Auto) 19.5 % 05/06/23 15:22 [place] % (Auto) 7.4 % 05/06/23 15:22 Eos % (Auto) 0.0 % 05/06/23 15:22 Baso % (Auto) 0.3 % 05/06/23 15:22 Neut # (Auto) 11.26 10^3/uL (1. 8-7.7) H 05/06/23 15:22 Lymph # (Auto) 3.0 10^3/uL (0.8- 4.8) 05/06/23 15:22 [place] # (Auto) 1.2 10^3/uL (0.2- 0.9) H 05/06/23 15:22 Eos # (Auto) 0.0 10^3/uL (0.0- 0.8) 05/06/23 15:22 Baso # (Auto) 0.0 10^3/uL (0.0- 0.1) 05/06/23 15:22 Nucleated RBC % (a uto) 0 % 05/06/23 15:22 Nucleated RBCs # 0.0 /100WBC 05/06/23 15:22 Sodium 141 mmol/L (136-1 45) 05/06/23 15:22 Potassium 3.7 mmol/L (3.5-5 .1) 05/06/23 15:22 Chloride 105 mmol/L (98-10 7) 05/06/23 15:22 Carbon Dioxide 25 mmol/L (22-29) 05/06/23 15:22 Anion Gap 14.7 (5-19) 05/06/23 15:22 BUN 16 mg/dL (6-20) 05/06/23 15:22 Creatinine 0.6 mg/dL (0.5-0. 9) 05/06/23 15:22 GFR Calculation 105.8 mL/min (90- 130) 05/06/23 15:22 Glucose 94 mg/dL (65-115) 05/06/23 15:22 POC Glucose 128 mg/dL (70-110 ) H 05/21/23 19:27 Calculated Osmolal ity 293 mOsm/kg (285- 295) 05/06/23 15:22 Calcium 9.1 mg/dL (8.5-10 .5) 05/06/23 15:22 Total Bilirubin 0.2 mg/dL (0.15-1 .2) 05/06/23 15:22 AST 15 U/L (0-32) 05/06/23 15:22 ALT 14 U/L (0-33) 05/06/23 15:22 Alkaline Phosphata se 77 U/L (35-105) 05/06/23 15:22 Troponin T Gen 5 n g/L < 6 ng/L (0-10) 05/20/23 12:18 Total Protein 6.4 g/dL (6.6-8.7 ) L 05/06/23 15:22 Albumin 4.0 g/dL (3.5-5.2 ) 05/06/23 15:22 Globulin 2.4 g/dL (1.3-4.6 ) 05/06/23 15:22 HCG, Qual Negative (Negati ve) 05/14/23 13:30 Urine Color Yellow (Yellow) 05/08/23 16:56 Urine Appearance Clear (CLEAR) 05/08/23 16:56 Urine pH 6 (5-7) 05/08/23 16:56 Ur Specific Gravit y 1.015 (1.005-1.0 30) 05/08/23 16:56 Urine Protein Neg (Negative) 05/08/23 16:56 Urine Glucose (UA) Norm (Normal) 05/08/23 16:56 Urine Ketones Negative (Negati ve) 05/08/23 16:56 Urine Blood 2+ (Negative) H 05/08/23 16:56 Urine Nitrate Negative (Negati ve) 05/08/23 16:56 Urine Bilirubin Neg (Negative) 05/08/23 16:56 Urine Urobilinogen Norm mg/dL (Negat sherlyn) 05/08/23 16:56 Ur Leukocyte Batsheva ase Negative (Negati ve) 05/08/23 16:56 Urine RBC 0-4 /hpf (0-2) H 05/08/23 16:56 Urine WBC 0-4 /hpf (0-5) H 05/08/23 16:56 Ur Squamous Epith Cells 0-4 /hpf (0-5) H 05/08/23 16:56 Amorphous Sediment Not Reportable 05/08/23 16:56 Urine Bacteria Trace /hpf (NONE) 05/08/23 16:56 Urine Mucus 1+ /hpf 05/08/23 16:56 Salicylates < 0.3 mg/dL (3-10 ) L 05/06/23 15:22 Urine Opiates Scre en Negative ng/mL (N egative) 05/08/23 16:56 Acetaminophen < 5.0 ug/mL (10-3 0) L 05/06/23 15:22 Ur Barbiturates Sc reen Negative ng/mL (N egative) 05/08/23 16:56 Ur Phencyclidine S crn Negative ng/mL (N egative) 05/08/23 16:56 Ur Amphetamines Sc reen Positive ng/mL (N egative) H 05/08/23 16:56 U Benzodiazepines Scrn Positive ng/mL (N egative) H 05/08/23 16:56 Urine Cocaine Scre en Negative ng/mL (N egative) 05/08/23 16:56 U Marijuana (THC) Screen Positive ng/mL (N egative) H 05/08/23 16:56 Ethyl Alcohol < 10 mg/dL (0-10) 05/06/23 15:22 C.trachomatis RNA (TMA) Not detected (NO T DETECTED) 05/08/23 16:56 Chlamydia/GC Comme nt See note 05/08/23 16:56 N.gonorrhoeae RNA (TMA) Not detected (NO T DETECTED) 05/08/23 16:56 Vitals: Last Vital Signs Temp 98.4 F 05/22/23 20:34 Pulse 102 H 05/23/23 09:04 Resp 17 05/23/23 09:04 BP 113/77 05/23/23 09:04 Pulse Ox 96 05/23/23 09:04 O2 Del Method Room Air 05/23/23 06:00 Discharge Plan Discharge Patient Disposition: Home Condition: Stable Prescriptions: New aripiprazole 20 mg tablet 20 mg PO DAILY 30 Days Qty: 30 1RF Discharge Orders: Discharge Order (Routine); Ordered 05/23/23 Ordered By: Dick Kyle Referrals: [facility] [Other] - 06/10/23 1:30 pm (Intake appointment) [facility] - [Other] - 07/11/23 10:00 am (Appointment with Psychiatrist Dr. Yates 07/11/22 @ 10:00 am. ) [facility] [Other] (After your medicaid is active and you have a smart phone call and get enrolled. ) Discharge Diet: Usual diet Discharge Activity: Resume usual activity Patient Instructions: Aripiprazole (By mouth), Psychotic Disorder (DC), Opioid Safety Discharge Attestations NPU Time Spent in Discharge Care*: less than 30 min Specific Discharge Activities: Specific discharge activities: educating patient, discussing with child support case officer/social workers/dc planners and documenting/other paperwork Coding Level of Care Code Acute Chg FW DC note Diagnoses Drug-induced psychotic disorder F19.959 Methamphetamine abuse F15.10 Homicidal ideation R45.850 Suicidal ideation R45.851 Psychosis F29 Aggression R46.89 Withdrawal from methamphetamine F15.93
== END 2023-05-23 13:00 | disposition home or self-care (01) | DRG 897 ==
LOC: ER 14:47 → NP 16:20
PROVIDERS: Family Medicine; Psychiatry & Neurology Psychiatry; Admitting Provider Psychiatry & Neurology Psychiatry; Emergency Provider Emergency Medicine; Visit Provider Psychiatry & Neurology Psychiatry
DX: F15.151 Other stimulant abuse with stimulant-induced psychotic disorder with hallucinations (principal); R45.851 Suicidal ideations; F15.13 Other stimulant abuse with withdrawal; F17.210 Nicotine dependence, cigarettes, uncomplicated; R45.850 Homicidal ideations
CPT/HCPCS: 36415; 36416; 80053; 80306; 80307; 81001; 81025; 82962; 84484; 85025; 87491; 87591; 93005; 93010; 96372; 97150; 97165; 99285; J1200; J1630; J2060; Q0163

== ENCOUNTER 2024-07-30 14:14 | Emergency (ER) | payer BC, MEDICAID, SELFPAY ==
[2024-07-30 14:28] VITALS: BP 133/87; PULSE 115; RESP 18; TEMP 36.4; O2SAT 100; BMI 23.1
--- NOTE | 2024-07-30 14:41 | ECG_ITS ---
[facility] Date: 2024-07-30 Pat Name: Danielle Weber Department: Room: Gender: Female Senior Property Manager: : 1975 Requested By: Kelli Taylor Order Number: [id number] Amaya MD: Landry Louis M.D. Measurements Intervals [place] Rate: 105 P: 51 HI: 136 QRS: 61 QRSD: 81 T: 57 QT: 342 QTc: 453 Interpretive Statements SINUS TACHYCARDIA NONSPECIFIC T-WAVE ABNORMALITY Compared to ECG 05/20/2023 12:22:53 Sinus rhythm no longer present T-wave abnormality still present Electronically Signed On 08-01-2024 13:22:24 ENGINE DISPATCHER by Landry Louis M.D. [email or web address]
--- NOTE | 2024-07-30 14:55 | W.ED.PSYCHS ---
HPI - Psych General: Chief Complaint: Psychiatric Symptoms Stated Complaint: mhe Time Seen by Provider: 07/30/24 14:21 History of Present Illness: 49-year-old female with a history of reported methamphetamine abuse who was brought to the emergency room by police after she called the police to her home because she thinks there is someone under the house being shocked with a car battery or something thereabouts. She also was under the impression there are tunnels under her home. Police said this was not true and that she is hallucinating. Apparently other people in the home appear to be doing methamphetamine as well. She still believes that there is someone under the house. Otherwise she is slightly agitated but denies any homicidal or suicidal ideation and is awake alert and oriented. She says she does not want to stay here. She agrees to a medical clearance and then wants to go home. Related Data Home Medications Medication Instructions Recorded Confirmed No Known Home Medications 07/30/24 07/30/24 Allergies Allergy/AdvReac Type Severity Reaction Status Date / Time No Known Allergies Allergy Verified 12/09/22 10:44 Review of Systems Narrative: Constitutional symptoms: Negative except as documented in HPI. Skin symptoms: Negative except as documented in HPI. Eye symptoms: Negative except as documented in HPI. ENMT symptoms: Negative except as documented in HPI. Respiratory symptoms: Negative except as documented in HPI. Cardiovascular symptoms: Negative except as documented in HPI. Gastrointestinal symptoms: Negative except as documented in HPI. Genitourinary symptoms: Negative except as documented in HPI. Musculoskeletal symptoms: Negative except as documented in HPI. Neurologic symptoms: Negative except as documented in HPI. Psychiatric symptoms: Negative except as documented in HPI. Endocrine symptoms: Negative except as documented in HPI. PFS ED PFSH: Medical History (Updated 07/30/24 @ 17:06 by Kelli Howard MD) Psychiatric care No pertinent past medical history Social History Smoking and tobacco/nicotine status: current every day tobacco/nicotine user Alcohol intake: current Physical Exam Narrative: EXAM NARRATIVE: General: Alert. no acute distress Skin: Warm, dry Head: Normocephalic, atraumatic. Neck: Supple, trachea midline. Eye: Extraocular movements are intact. Ears, nose, mouth and throat: Oral mucosa moist. Cardiovascular: Regular rate and rhythm, Normal peripheral perfusion. Respiratory: Lungs are clear to auscultation, respirations are non-labored, breath sounds are equal, Symmetrical chest wall expansion. Gastrointestinal: Soft, Nontender, Non distended, Normal bowel sounds. Musculoskeletal: Normal ROM, no deformity. Neurological: Alert and oriented to person, place, time, No focal neurological deficit observed. Psychiatric: Slightly agitated. Still insists there is things under the house. At times appears to be having some hallucinations and talking to herself in the room. Course Vital Signs: Vital signs: Vital Signs Temperature 97.6 F 07/30/24 14:28 Pulse Rate 101 H 07/30/24 17:05 Respiratory Rate 18 07/30/24 14:28 Blood Pressure 118/87 07/30/24 17:05 Pulse Oximetry 98 07/30/24 17:05 Oxygen Delivery Me thod Room Air 07/30/24 17:05 MDM - Psych Medical Decision Making Medical decision making: Differential diagnosis for patient with reported psychosis including but not limited to and based on the above HPI, review of systems and physical exam: concerns for infection, alcohol intoxication, cardiac issues or other medical problems prior to psychiatric admission. Orders placed to evaluate differential diagnosis based on the above differential, HPI and physical exam labwork, ekg ordered to evaluate the pathologies and to clear the patient medically prior to psychiatric admission Lab Review: Laboratory results were reviewed and interpreted by myself the emergency room physician. - Medically cleared. - EKG shows no ischemic changes. - Blood alcohol level is negative, as well as salicylate and Tylenol. - No anemia. - BUN and creatinine are within normal limits. I reviewed the patient's medical record. Reexamination: Patient remains slightly elevated. She has been having some apparent hallucinations. She continues to deny homicidal and suicidal ideation. She continues to be alert and oriented. She does agree to take a dose of Geodon. Consultation: I spoke with Dr. Callahan with psychiatry and he agrees that I do not really have any definitive evidence of any self-harm or harm to others and I do not have basis for a 96-hour hold at this time. Assessment and plan: Methamphetamine induced psychosis Hallucinations ?IM Geodon - Discharged home - Discussed plan with patient. Answered any questions. - Evaluation and treatment of this problem were appropriate in the emergency setting. Lab Data 07/30/24 15:55 07/30/24 15:55 Laboratory Results WBC 12.75 10^3/uL (3.29-11.43) H 07/30/24 15:55 RBC 4.26 10^6/uL (3.85-5.65) 07/30/24 15:55 Hgb 10.20 g/dL (11.27-16.99) L 07/30/24 15:55 Hct 33.1 % (36-47) L 07/30/24 15:55 MCV 77.7 fl (85-98) L 07/30/24 15:55 MCH 23.9 pg (27-33) L 07/30/24 15:55 MCHC 30.8 g/dL (30-55) 07/30/24 15:55 RDW 17.0 % (12.1-15.1) H 07/30/24 15:55 Plt Count 562 10^3/cmm (157-399) H 07/30/24 15:55 MPV 9.1 fL (7.4-10.4) 07/30/24 15:55 Neut % (Auto) 66.2 % 07/30/24 15:55 Lymph % (Auto) 22.2 % 07/30/24 15:55 [place] % (Auto) 10.5 % 07/30/24 15:55 Eos % (Auto) 0.1 % 07/30/24 15:55 Baso % (Auto) 0.5 % 07/30/24 15:55 Neut # (Auto) 8.44 10^3/uL (1.8-7.7) H 07/30/24 15:55 Lymph # (Auto) 2.8 10^3/uL (0.8-4.8) 07/30/24 15:55 [place] # (Auto) 1.3 10^3/uL (0.2-0.9) H 07/30/24 15:55 Eos # (Auto) 0.0 10^3/uL (0.0-0.8) 07/30/24 15:55 Baso # (Auto) 0.1 10^3/uL (0.0-0.1) 07/30/24 15:55 Nucleated RBC % (auto) 0 % 07/30/24 15:55 Nucleated RBCs # 0.0 /100WBC 07/30/24 15:55 Sodium 136 mmol/L (136-145) 07/30/24 15:55 Potassium 3.9 mmol/L (3.5-5.1) 07/30/24 15:55 Chloride 100 mmol/L (98-107) 07/30/24 15:55 Carbon Dioxide 25 mmol/L (22-29) 07/30/24 15:55 Anion Gap 14.9 (5-19) 07/30/24 15:55 BUN 14 mg/dL (6-20) 07/30/24 15:55 Creatinine 0.5 mg/dL (0.5-0.9) 07/30/24 15:55 GFR Calculation 130.1 mL/min (90-130) H 07/30/24 15:55 Glucose 102 mg/dL (65-115) 07/30/24 15:55 Calculated Osmolality 283 mOsm/kg (285-295) L 07/30/24 15:55 Calcium 8.9 mg/dL (8.5-10.5) 07/30/24 15:55 Total Bilirubin 0.2 mg/dL (0.15-1.2) 07/30/24 15:55 AST 20 U/L (0-32) 07/30/24 15:55 ALT 18 U/L (0-33) 07/30/24 15:55 Alkaline Phosphatase 86 U/L (35-105) 07/30/24 15:55 Total Protein 7.0 g/dL (6.6-8.7) 07/30/24 15:55 Albumin 4.2 g/dL (3.5-5.2) 07/30/24 15:55 Globulin 2.8 g/dL (1.3-4.6) 07/30/24 15:55 TSH 2.20 uIU/mL (0.27-4.20) 07/30/24 15:55 Salicylates 0.4 mg/dL (3-10) L 07/30/24 15:55 Acetaminophen < 5.0 ug/mL (10-30) L 07/30/24 15:55 Ethyl Alcohol < 10 mg/dL (0-10) 07/30/24 15:55 No radiology studies performed this visit Discharge Plan Discharge Patient Disposition: Home Clinical Impression: Drug-induced psychotic disorder Condition: Stable Prescriptions: No Action No Known Home Medications Discharge Orders: Discharge ED (Routine); Ordered 07/30/24 Ordered By: Kelli Howard Discharge Diet: As Directed Discharge Activity: Increase activity as tolerated Patient Instructions: Methamphetamine Use Disorder (ED), Hallucinations (ED), Opioid Safety, Pain Management Activity Restrictions/Additional Instructions: Please follow-up with the [facility] behavioral health crisis center tomorrow or the next day. Phone number is [phone]. There is a 24-hour crisis hotline with the number of [phone]. Hours of operation are 8 AM to 6 PM. Thank you for choosing [facility] for your healthcare needs today. Please realize this is an emergency room and that we are providing you with a medical screening exam and this may not be complete and all inclusive of all the testing and or work up that you may need to determine your ailment or severity of your illness. You have been screened and evaluated and felt safe for discharge. Health conditions do change or evolve sometimes and as such it is important that you follow up with your Primary Doctor to be re checked, 3-5 days is a general good time frame for follow up. You are always welcome to return to the ED for re assessment if your symptoms are worsening or you have new concerns Coding Level of Care Code ED Tire Molder for Thor Johnson
--- NOTE | 2024-07-30 15:05 | PC.NURSE ---
pt refusing ziprasidone. Dr. Howard notified.
[2024-07-30 16:06] LABS: Basophils # 0.1 10^3/uL (0.0-0.1); Basophils % 0.5 %; Eosinophils % 0.1 %; Hematocrit 33.1 % (36-47); Lymphocytes # 2.8 10^3/uL (0.8-4.8); Lymphocytes % 22.2 %; Mean Corpuscular HGB Conc 30.8 g/dL (30-55); Mean Corpuscular Hemoglobin 23.9 pg (27-33); Mean Corpuscular Volume 77.7 fl (85-98); Mean Platelet Volume 9.1 fL (7.4-10.4); Monocytes # 1.3 10^3/uL (0.2-0.9); Monocytes % 10.5 %; Neutrophils # 8.44 10^3/uL (1.8-7.7); Neutrophils % 66.2 %; Nucleated Red Blood Cells % 0 %; Platelet Count 562 10^3/cmm (157-399); Red Blood Count 4.26 10^6/uL (3.85-5.65); White Blood Count 12.75 10^3/uL (3.29-11.43)
--- NOTE | 2024-07-30 16:21 | XRR_ITS ---
PROCEDURE INFORMATION: Exam: XR Chest Exam date and time: 07/30/2024 5:02 PM Age: 49 years old Clinical indication: Shortness of breath TECHNIQUE: Imaging protocol: Radiologic exam of the chest. Views: 1 view. COMPARISON: CR XR shoulder RT min 2V* [id number] 07/24/2018 8:40 AM FINDINGS: Lungs: Bandlike opacity right lung base reflecting atelectasis or infiltrate. Pleural spaces: Unremarkable. No pleural effusion. No pneumothorax. Heart/Mediastinum: Unremarkable. No cardiomegaly. Bones/joints: Unremarkable. XR/XR chest 1V portable [id number] IMPRESSION: As above.
[2024-07-30 16:32] LABS: Alanine Aminotransferase 18 U/L (0-33); Albumin Level 4.2 g/dL (3.5-5.2); Alkaline Phosphatase 86 U/L (35-105); Anion Gap 14.9 (5-19); Aspartate Amino Transferase 20 U/L (0-32); Blood Urea Nitrogen 14 mg/dL (6-20); Calcium 8.9 mg/dL (8.5-10.5); Carbon Dioxide 25 mmol/L (22-29); Chloride 100 mmol/L (98-107); Globulin 2.8 g/dL (1.3-4.6); Glomerular Filtration Rate 130.1 mL/min (90-130); Glucose 102 mg/dL (65-115); Osmolality Calculated 283 mOsm/kg (285-295); Potassium 3.9 mmol/L (3.5-5.1); Salicylate 0.4 mg/dL (3-10); Sodium 136 mmol/L (136-145); Total Bilirubin 0.2 mg/dL (0.15-1.2)
[2024-07-30 16:37] LABS: Acetaminophen < 5.0 ug/mL (10-30); Alcohol Level < 10 mg/dL (0-10)
[2024-07-30] MEDS: ziprasidone 20 mg/mL SDV IM (16:48)
--- NOTE | 2024-07-30 17:03 | PC.NURSE ---
called , phone number listed not active, called son, phone number listed not active. called daughter sofía and sofía stated she will try to call family able to come pick her up.
[2024-07-30 17:05] VITALS: BP 118/87; PULSE 101; O2SAT 98
[2024-07-30 18:03] VITALS: BP 122/61; PULSE 103; O2SAT 98
== END 2024-07-30 18:04 | disposition home or self-care (01) ==
PROVIDERS: Emergency Provider Emergency Medicine
DX: F15.951 Other stimulant use, unspecified with stimulant-induced psychotic disorder with hallucinations (principal); Z72.0 Tobacco use
CPT/HCPCS: 36415; 71045; 80053; 80307; 84443; 85025; 93005; 96372; 99285; J3486